=== PATIENT | male | born 1965 | race Caucasian/White ===

== ENCOUNTER 2019-05-23 11:43 | Inpatient (IN) | payer OTHER, SELFPAY ==
[2019-05-23] VITALS (10 sets, daily range): BP systolic 109–178; BP diastolic 62–128; PULSE 100–110; RESP 15–24; TEMP 36.4–38.1; O2SAT 89–98; BMI 38.3
--- NOTE | 2019-05-23 12:18 | XR_ITS ---
WS: [id number] PORTABLE CHEST HISTORY: SOB COMPARISON: None available. Scattered opacifications bilaterally but greatest over the mid and lower central RIGHT lung. More sub tle opacifications in the central LEFT lung. No pleural effusion or pneumothorax. Cardiac size: Moderately enlarged cardiac silhouette. Mediastinum/Aorta: Normal mediastinum. No osseous abnormality seen. XR/XR chest 1V portable [id number] IMPRESSION: 1. Bilateral pneumonia, RIGHT greater than LEFT. 2. Moderate cardiomegaly.
--- NOTE | 2019-05-23 12:20 | ECG_ITS ---
Measurements Intervals [place] Rate: 108 P: NC: 0 QRS: 11 QRSD: 109 T: 90 QT: 344 QTc: 463 Sinus TACHYCARDIA WITH RAPID VENTRICULAR RESPONSE POSSIBLE ANTERIOR MYOCARDIAL INFARCTION , OF INDETERMINATE AGE [30 ms Q WAVE IN V3/V4, OR R < 0.2 mV IN V4] MODERATE T-WAVE ABNORMALITY, CONSIDER LATERAL ISCHEMIA [-0.1+ mV T WAVE IN I/ I/aVL/V5/V6] No previous ECG available for comparison Electronically Signed On 05-24-2019 7:58:56 CDT by Bassam Aguirre M.D. [email or web address]
--- NOTE | 2019-05-23 12:23 | W.ED.SOB ---
HPI - SOB/Dyspnea General: Chief Complaint: Shortness of Breath/Dyspnea Stated Complaint: SOB, DIZZY Time Seen by Provider: 05/23/19 11:52 Source: patient and family ( was on the phone) Mode of arrival: ambulatory Limitations: other (shortness of breath) History of Present Illness: HPI Narrative: Patient is a 53-year-old gentleman with no significant past medical history who presents to the emergency department complaining of chest pain and shortness of breath. The patient also called his who was on face time and gave part of the history. Yesterday while the patient was cutting grass at home he developed substernal chest pain and shortness of breath. He also had some dizziness at that time. Symptoms got a little better with rest and aspirin yesterday but have progressively worsened since then. The patient states that It feels like I have a hole in my lungs and he cannot get air into it . The patient does not smoke but chews tobacco. No history of recent long travel and no family history of PE or DVTs. No cardiac history in the patient or his family. Because he is feeling worse he is presenting to be evaluated. No sick contacts and no travel to any states with the coronavirus infection. MD elicited complaint: shortness of breath and cough Onset (ago): day(s) (1) Timing: constant and progressively worsening Severity: moderate Exacerbating factors: exertion Relieving factors: nothing Associated symptoms: Reports chest congestion, chest pain, cough, dizziness, fever(s), lightheadedness and nausea; Deny abdominal pain, diaphoresis, hemoptysis, polydipsia, polyuria, sense of impending doom, syncope or vomiting Treatment prior to arrival: none Review of Systems General: Reports: 10 or more systems reviewed and unremarkable except in HPI and below Const: Reports: fever; Denies: diaphoresis Eyes: Denies: change in vision or blurry vision ENMT: Denies: throat pain, enlarged tonsils, painful swallowing, hoarseness, mouth pain or swelling of lips/tongue Card: Reports: chest pain and lightheadedness; Denies: syncope Resp: Reports: chest congestion; Denies: coughing up blood GI: Reports: nausea; Denies: abdominal pain or vomiting : Denies: flank pain, painful urination, urinary frequency, urinary urgency or urinary hesitancy Musc: Denies: neck pain, back pain or extremity swelling Skin/Breast: Denies: rash, itching or redness Neuro: Reports: dizziness Endo: Denies: excessive urination, excessive thirst or tired all the time PFSH ED PFSH: Medical History (Updated 05/23/19 @ 22:31 by Alondra Dasilva MD, [facility]) Obesity Family History (Updated 05/23/19 @ 15:26 by Olvin Barker MD) Father Cancer Lung cancer Mother Lung disease COPD, both parents smokers Social History (Updated 05/23/19 @ 15:27 by Olvin Barker MD) Smoking and tobacco status: former smoker Substance/Drug Use: never Lives independently: Yes Household members: spouse and children Marital status: Number of children: 5 Physical Exam Const: COMMON NORMALS: no apparent distress, average body habitus, oriented x3, no limitations, alert and well nourished Neck/C-Spine: COMMON NORMALS: full ROM, supple, no meningeal signs, no JVD and no carotid bruits Chest: COMMONS NORMALS: inspection of chest normal and palpation of chest normal Resp: COMMON NORMALS: normal respiratory effort, no retractions, no use of accessory muscles and clear to auscultation bilaterally AUSCULTATION: clear to auscultation bilaterally Cardio: COMMON NORMALS: no JVD, regular rhythm, S1 normal heart sound, S2 normal heart sound, no gallops, no clicks, no murmurs, no rub and peripheral pulses 2+ throughout RATE: tachycardic RHYTHM: regular rhythm HEART SOUNDS: S1 normal and S2 normal PERIPHERAL PULSES: pulses 2+ throughout GI: COMMON NORMALS: normal to inspection, nondistended, normoactive bowel sounds, soft to palpation, non-tender, no hepatosplenomegaly, no masses and no bruits PALPATION: Yes soft and Yes no hepatosplenomegaly : COMMON NORMALS: Yes no CVA tenderness BLADDER/KIDNEY EXAM: Yes no CVA tenderness Back/Pelvis: COMMON NORMALS: no CVA tenderness Extremity: COMMON NORMALS: normal to inspection, full ROM, normal capillary refill, no calf tenderness and no pedal edema Neuro: COMMON NORMALS: oriented x3 SENSORIUM/ORIENTATION: Yes alert MENINGEAL SIGNS: Yes no meningeal signs Skin: COMMON NORMALS: no rashes or lesions noted, no wounds, skin turgor normal, no jaundice, no petechiae and no mottling GENERAL SKIN EXAM: no rashes or lesions noted and turgor normal Course Vital Signs: Vital signs: Vital Signs Temperature 100.6 F H 05/23/19 19:57 Pulse Rate 101 H 05/23/19 19:57 Respiratory Rate 21 H 05/23/19 19:57 Blood Pressure 109/62 05/23/19 19:57 Pulse Oximetry 97 05/23/19 19:57 MDM - SOB/Dyspnea MDM Narrative: Medical decision making narrative: 63-year-old male who presents to the emergency department with shortness of breath that started suddenly yesterday. Evaluation in the ED is not conclusive but concerns include covid-19, pneumonia, ACS, musculoskeletal chest pain causing difficulty breathing. He does not have any real risk factors for coronavirus infection, however due to the acuity of onset of his symptoms and the bilateral patchy infiltrates seen on his x-ray he is tested for covid-19, started on antibiotics and is admitted for further evaluation and management. Lab Data: Labs: Lab Results 05/23/19 05/23/19 05/23/19 Range/Units 12:00 12:00 12:00 WBC 12.7 H (4.0-10.0) 10^3/ uL RBC 5.27 (4.1-5.3) 10^6/u L Hgb 15.2 (11.7-16.6) g/dL Hct 45.1 (42.0-52.0) % MCV 85.6 (80-94) fL MCH 28.8 (28.0-34.0) pg MCHC 33.7 (30.0-36.0) g/dL RDW 13.3 (12.1-15.1) % Plt Count 199 (130-400) 10^3/c mm MPV 10.7 H (7.4-10.4) fL Neut % (Auto) 81.8 % Lymph % (Auto) 10.2 % Holt % (Auto) 6.8 % Eos % (Auto) 0.6 % Baso % (Auto) 0.4 % Neut # (Auto) 10.4 H (1.8-7.7) 10^3/u L Lymph # (Auto) 1.3 (0.8-4.8) 10^3/u L Holt # (Auto) 0.9 (0.2-0.9) 10^3/u L Eos # (Auto) 0.1 (0.0-0.8) 10^3/u L Baso # (Auto) 0.1 (0.0-0.1) 10^3/u L Nucleated RBC % (a uto) 0 % Nucleated RBCs # 0.0 /100WBC D-Dimer 0.30 (0-0.59) ug/mIFE U Sodium 135 L (136-145) mmol/L Potassium 4.0 (3.5-5.1) mmol/L Chloride 100 (98-107) mmol/L Carbon Dioxide 21 L (22-29) mmol/L Anion Gap 18.0 (5-19) BUN 15 (6-20) mg/dL Creatinine 0.9 (0.7-1.2) mg/dL GFR Calculation 87.6 L (90-130) mL/min Glucose 204 H (65-115) mg/dL Calculated Osmolal ity 282 L (285-295) mOsm/k g Calcium 10.0 (8.5-10.5) mg/dL Total Bilirubin 1.0 (0.15-1.2) mg/dL AST 23 (0-40) U/L ALT 27 (0-41) U/L Alkaline Phosphata se 76 (40-130) IU/L Troponin T Baselin e (0-15) ng/mL NT-Pro-B Natriuret Pep 471 H (0-125) pg/mL Total Protein 7.2 (6.6-8.7) g/dL Albumin 4.1 (3.5-5.2) g/dL Globulin 3.1 (1.3-4.6) g/dL 05/23/19 Range/Units 12:00 WBC (4.0-10.0) 10^3/ uL RBC (4.1-5.3) 10^6/u L Hgb (11.7-16.6) g/dL Hct (42.0-52.0) % MCV (80-94) fL MCH (28.0-34.0) pg MCHC (30.0-36.0) g/dL RDW (12.1-15.1) % Plt Count (130-400) 10^3/c mm MPV (7.4-10.4) fL Neut % (Auto) % Lymph % (Auto) % Holt % (Auto) % Eos % (Auto) % Baso % (Auto) % Neut # (Auto) (1.8-7.7) 10^3/u L Lymph # (Auto) (0.8-4.8) 10^3/u L Holt # (Auto) (0.2-0.9) 10^3/u L Eos # (Auto) (0.0-0.8) 10^3/u L Baso # (Auto) (0.0-0.1) 10^3/u L Nucleated RBC % (a uto) % Nucleated RBCs # /100WBC D-Dimer (0-0.59) ug/mIFE U Sodium (136-145) mmol/L Potassium (3.5-5.1) mmol/L Chloride (98-107) mmol/L Carbon Dioxide (22-29) mmol/L Anion Gap (5-19) BUN (6-20) mg/dL Creatinine (0.7-1.2) mg/dL GFR Calculation (90-130) mL/min Glucose (65-115) mg/dL Calculated Osmolal ity (285-295) mOsm/k g Calcium (8.5-10.5) mg/dL Total Bilirubin (0.15-1.2) mg/dL AST (0-40) U/L ALT (0-41) U/L Alkaline Phosphata se (40-130) IU/L Troponin T Baselin e 32 H (0-15) ng/mL NT-Pro-B Natriuret Pep (0-125) pg/mL Total Protein (6.6-8.7) g/dL Albumin (3.5-5.2) g/dL Globulin (1.3-4.6) g/dL EKG Data^: EKG 1: Attestation: I personally reviewed and interpreted this EKG as follows: EKG Interpretation Date: 05/23/19 EKG interpretation time: 12:00 Prior EKG tracings: not available for review Interpretation: Sinus tachycardia. Heart rate 108. She will reversion in 1 and aVL Discharge Plan Discharge Patient Disposition: Admitted As Inpatient Admit Provider: Makarian,Olvin Clinical Impression: Community acquired pneumonia Qualifiers: Laterality: right Lung location: lower lobe of lung Qualified Code(s): J18.9 - Pneumonia, unspecified organism Dyspnea Qualifiers: Dyspnea type: shortness of breath Qualified Code(s): R06.02 - Shortness of breath Condition: Stable Interventions: ED Discharge Assessment Last Done: 05/23/19 15:16 Discharge Date/Time: 05/23/19 15:17 Coding Level of Care Code ED Web Applications Developer for Chg Fwd Exam Comprehensive
[2019-05-23 12:31] LABS: Basophils # 0.1 10^3/uL (0.0-0.1); Basophils % 0.4 %; Eosinophils # 0.1 10^3/uL (0.0-0.8); Eosinophils % 0.6 %; Hematocrit 45.1 % (42.0-52.0); Hemoglobin 15.2 g/dL (11.7-16.6); Lymphocytes # 1.3 10^3/uL (0.8-4.8); Lymphocytes % 10.2 %; Mean Corpuscular HGB Conc 33.7 g/dL (30.0-36.0); Mean Corpuscular Hemoglobin 28.8 pg (28.0-34.0); Mean Corpuscular Volume 85.6 fL (80-94); Mean Platelet Volume 10.7 fL (7.4-10.4); Monocytes # 0.9 10^3/uL (0.2-0.9); Monocytes % 6.8 %; Neutrophils # 10.4 10^3/uL (1.8-7.7); Neutrophils % 81.8 %; Nucleated Red Blood Cells % 0 %; Platelet Count 199 10^3/cmm (130-400); Red Blood Count 5.27 10^6/uL (4.1-5.3); Red Cell Distribution Width 13.3 % (12.1-15.1); White Blood Count 12.7 10^3/uL (4.0-10.0)
[2019-05-23 12:46] LABS: Troponin(5th) Baseline 32 ng/mL (0-15)
[2019-05-23 13:22] LABS: Alanine Aminotransferase 27 U/L (0-41); Albumin Level 4.1 g/dL (3.5-5.2); Alkaline Phosphatase 76 IU/L (40-130); Aspartate Amino Transferase 23 U/L (0-40); Blood Urea Nitrogen 15 mg/dL (6-20); Carbon Dioxide 21 mmol/L (22-29); Chloride 100 mmol/L (98-107); Globulin 3.1 g/dL (1.3-4.6); Glomerular Filtration Rate 87.6 mL/min (90-130); Glucose 204 mg/dL (65-115); NT Pro B Type Natriuretic Pept 471 pg/mL (0-125); Osmolality Calculated 282 mOsm/kg (285-295); Sodium 135 mmol/L (136-145); Total Protein 7.2 g/dL (6.6-8.7)
--- NOTE | 2019-05-23 13:52 | CTR_ITS ---
PROCEDURE INFORMATION: Exam: CT Angiography Chest With Contrast Exam date and time: 05/23/2019 2:35 PM Age: 53 years old Clinical indication: Shortness of breath; Additional info: SOB, hypoxia TECHNIQUE: Imaging protocol: Computed tomographic angiography of the chest with intravenous contrast. Axial, coronal and sagittal reformatted images were created and reviewed. 3D rendering: MIP and/or 3D reconstructed images were created by the technologist. Total DLP: 624.49 mGy-cm Radiation optimization: All CT scans at this facility use at least one of these dose optimization techniques: automated exposure control; mA and/or kV adjustment per patient size (includes targeted exams where dose is matched to clinical indication); or iterative reconstruction. Contrast material: OMNIPAQUE 350; Contrast volume: 95 ml; Contrast route: IV; COMPARISON: CR XR chest 1V portable [id number] 05/23/2019 12:34 PM FINDINGS: Pulmonary arteries: Contrast opacification satisfactory. No intraluminal filling defect. Aorta: Mild atherosclerotic disease. No aneurysm or dissection. Lungs: Mild central peribronchial thickening, suggestive of airway inflammation. Patchy right greater than left ground-glass infiltrates with associated interlobular septal thickening, most pronounced in the perihilar regions. Focal area of more confluent consolidation in the right lower lobe. Scattered nodular densities, measuring up to 6 mm in the right middle lobe (series 2, image 243). Right middle lobe calcified granuloma. Pleural space: Small right greater than left pleural effusions. Heart: Cardiomegaly and left ventricular hypertrophy. Mediastinum: Small hiatal hernia. Lymph nodes: Calcified mediastinal and hilar lymph nodes, consistent with prior granulomatous disease. Bones/joints: No acute osseous abnormality. Osteopenia. Degenerative changes. Soft tissues: Unremarkable. CT/CT angio chest PE protcl [id number]: 1. No CT evidence of pulmonary embolism. 2. Cardiomegaly and small right greater than left pleural effusions with findings suggestive of edema, as described above. 3. Focal area of more confluent consolidation in the right lower lobe. Superimposed infection/pneumonia cannot be excluded. 4. Scattered nodular densities, measuring up to 6 mm in the right middle. For patients at low risk (minimal or absent history of smoking and of other known risk factors), recommend CT at 3-6 months, then consider CT at 18-24 months. For patients at high risk (history of smoking or of other known risk factors), recommend CT at 3-6 months, then CT at 18-24 months. (Renetta et al., Fleischner Society, 2017) 5. Additional findings, as above. Radiation Dose CTDIVOL = (mGy): DLP = 624.49 (mGy-cm)
--- NOTE | 2019-05-23 14:20 | ECG_ITS ---
Measurements Intervals [place] Rate: 104 P: 13 IA: 155 QRS: 16 QRSD: 116 T: 85 QT: 352 QTc: 463 SINUS TACHYCARDIA MODERATE INTRAVENTRICULAR CONDUCTION DELAY [110+ ms QRS DURATION] ST ELEVATION, PROBABLY EARLY REPOLARIZATION [ST ELEVATION WITH NORMALLY INFL INFLECTED T WAVE] NONSPECIFIC T-WAVE ABNORMALITY ABNORMAL RHYTHM ECG No previous ECG available for comparison Electronically Signed On 05-24-2019 8:02:04 CDT by Bassam Aguirre M.D. [id number]
[2019-05-23] MEDS: cefTRIAXone 2,000 MG in sodium chloride 0.9% (plus) 50 ML 100 MG IV (14:25)
[2019-05-23 14:29] LABS: Troponin 5 2HR 32.68 ng/mL (0-15); Troponin 5 2HR Delta 0.68 ABS# (0-10)
[2019-05-23] MEDS: iohexol 300 mg/mL 100 mL Btl IV (14:49)
--- NOTE | 2019-05-23 15:12 | PC.NURSE ---
Georgie collected and sent to lab.
--- NOTE | 2019-05-23 15:15 | PM.HP ---
Providers/Chief Complaint Admitting Physician: Olvin Barker MD Chief Complaint: HYPOXIA, TACHYCARDIA, PNEUMONIA History of Present Illness Norm Christensen is a 53 year old male presents to emerge department with shortness of breath that started yesterday during physical activity. He was cleaning 55 gallons barrel, washing with water, shaking and emptying when all of a sudden he noticed significant shortness of breath along with shallow and rapid breathing and sensation of racing heart. Reports that shortly after he coughed up clear frothy pink phlegm and had no more episodes since then. Patient took several tablets of aspirin without significant improvement. He was not really wheezing but reports that he tried his mother's albuterol which appeared to help him. Reports that Symbicort did not appear having any effect. Reports that during that time he became diaphoretic but denies nausea or vomiting. His discomfort described as mild substernal with radiation straight to his back, in between shoulder blades. Reports that his chest is tender to palpation. Denies any previous episodes of the same. Denies sick contacts or recent travel. Denies history of diabetes, heart disease or stroke. Reports that at times he may get bilateral lower extremity swelling if he is on his feet long time but this goes away in the morning. He was in his normal state of health prior to this event yesterday. 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 In ER he was noted to be slightly tachycardic and tachypneic and saturating 88% on room air. He denies cough, nasal congestion or any other symptoms of allergy. He does however report previously having at times rhinorrhea when exposed to leaves or grass. He used to smoke but quit approximately 10 to 14 years ago . He chews tobacco since then. He has minimally elevated proBNP and troponin was negative delta. His initial EKG shows some concerning looking V1 ST elevation with biphasic T wave but otherwise V2-V4 ST elevation appears to be secondary to early repolarization. Case was discussed briefly with Dr. Aguirre and EKGs currently do not have any concerning findings. His blood glucose is 204 and he is obese. P.S. CTA showed no evidence of PE. Bilateral small pleural effusion with cardiomegaly was noted with concern for right basilar pneumonia. Review of Systems Narrative: Except as mentioned above Const: Denies: fever or chills Eyes: Denies: change in vision ENMT: Denies: throat pain or change in hearing Card: Reports: chest pain; Denies: edema or lightheadedness Resp: Reports: shortness of breath; Denies: productive cough GI: Denies: abdominal pain, nausea, vomiting, difficulty swallowing, diarrhea, constipation, blood in stool or black tarry stool Musc: Denies: joint pain or joint swelling Skin/Breast: Denies: rash or redness Neuro: Denies: headache or weakness in extremities Psych: Denies: depression Endo: Denies: excessive sweating [place]/Lymph: Denies: easy bleeding or tender lymph nodes All/Imm: Denies: throat swelling Medications/Allergies Home Medications Medication Instructions Recorded Confirmed Last Taken Type No Known Home Medications 05/23/19 05/23/19 Unknown History Allergies Allergy/AdvReac Type Severity Reaction Status Date / Time No Known Allergies Allergy Verified 05/23/19 12:00 PFSH Acute PFSH: Medical History (Updated 05/23/19 @ 16:14 by Olvin Barker MD) Obesity Family History (Updated 05/23/19 @ 15:26 by Olvin Barker MD) Father Cancer Lung cancer Mother Lung disease COPD, both parents smokers Social History (Updated 05/23/19 @ 15:27 by Olvin Barker MD) Smoking and tobacco status: former smoker Substance/Drug Use: never Lives independently: Yes Household members: spouse and children Marital status: Number of children: 5 Vitals/I&O/Wt Last Vital Signs Temp 99.0 F 05/23/19 11:53 Pulse 103 H 05/23/19 14:35 Resp 18 05/23/19 14:35 BP 154/100 05/23/19 14:35 Pulse Ox 98 05/23/19 14:35 05/23/19 05/23/19 05/23/19 06:59 14:59 22:59 Intake Total 50 / 50 Balance 50 / 50 Weight last 48 hrs Weight 124.738 kg Physical Exam Const: COMMON NORMALS: no apparent distress, oriented x3 and alert HENMT: COMMON NORMALS: normocephalic and head/scalp atraumatic HEAD & SCALP: normocephalic and atraumatic Eye: COMMON NORMALS: EOMs intact bilaterally, conjunctivae normal and no scleral icterus CONJUNCTIVA: Yes conjunctivae normal Neck/C-Spine: COMMON NORMALS: no lymphadenopathy and no meningeal signs Lymph: LYMPHATIC: no lymphadenopathy noted Chest: COMMONS NORMALS: palpation of chest normal Resp: COMMON NORMALS: clear to auscultation bilaterally (But overall decreased air movement) EFFORT & INSPECTION: Yes tachypneic AUSCULTATION: clear to auscultation bilaterally Cardio: COMMON NORMALS: regular rate, regular rhythm and no murmurs RATE: regular rate RHYTHM: regular rhythm OTHER: No lower extremity edema GI: COMMON NORMALS: soft to palpation and non-tender PALPATION: Yes soft RECTAL EXAM: Yes deferred : COMMON NORMALS: Yes no CVA tenderness BLADDER/KIDNEY EXAM: Yes no CVA tenderness Back/Pelvis: COMMON NORMALS: no CVA tenderness and thoracic and lumbar spine normal to inspection Extremity: COMMON NORMALS: normal to inspection and normal capillary refill Neuro: COMMON NORMALS: oriented x3 and no focal motor deficits SENSORIUM/ORIENTATION: Yes alert MENINGEAL SIGNS: Yes no meningeal signs Psych: COMMON NORMALS: mental status grossly normal, thought process normal and cooperative THOUGHT PROCESS: normal thought process Skin: COMMON NORMALS: no rashes or lesions noted GENERAL SKIN EXAM: no rashes or lesions noted Data : 05/23/19 12:00 05/23/19 12:00 A&P Assessment and plan (1) Chest pain: This appears to be musculoskeletal in origin. Status: Acute (2) Hyperglycemia: Status: Acute (3) Obesity: Status: Acute (4) Dyspnea: Could be multifactorial with obesity and some underlying COPD with possibility of allergen related bronchospasm playing a role. Status: Acute (5) Community acquired pneumonia: Status: Acute (6) Diastolic heart failure: Status: Acute (7) Hypertension: Status: Acute (8) Sepsis: As exhibited by leukocytosis, tachycardia and tachypnea. Status: Acute Additional A&P Information PLAN: Trend cardiac enzymes and obtain echocardiogram to evaluate wall motion and ejection fraction. Will try 1 dose IV Lasix and monitor. Check magnesium and phosphorus. Will start patient on nitroglycerin ointment 1 inch every 6 hours. We will use hydralazine as needed. Patient was given ceftriaxone and I will continue ceftriaxone and add azithromycin. Patient meets sepsis criteria. Will check lactic acid but at this point will avoid any IV fluids due to concern for underlying heart failure Awaiting COVID19 test although clinically this appears to be low probability. Check PFTs. Does not appear to be in COPD exacerbation clinically but definitely has some underlying degree of obstructive lung disease. Check TSH, lipid profile and hemoglobin A1c in a.m. Monitor on telemetry at cardiac stepdown unit. If remains stable from cardiac standpoint we may consider further evaluation with stress test. Patient will require repeat imaging as recommended per radiologist given findings of CT scan. Initially I thought patient will require less than 2 midnights but it appears that he will likely stay more than 2 midnights therefore will change admission status to inpatient. Attestations Medical Necessity Statement*: Pneumonia and what appears to be diastolic heart failure requires close inpatient monitoring, treatment and evaluation. I expect patient will require more than 2 midnights. Time Spent in Patient Care: Greater than 35 minutes (>than 50% of time spent in counselling and/or direct pt care on unit). Coding Level of Care Code Acute Air Traffic Control Equipment Repairer for Jacques Fwd Diagnoses Chest pain R07.9 Hyperglycemia R73.9 Obesity E66.9 Dyspnea R06.00 Community acquired pneumonia J18.9 Diastolic heart failure I50.30 Hypertension I10 Sepsis A41.9
[2019-05-23 16:43] LABS: Magnesium 2.3 mg/dL (1.7-2.3); Phosphorus 3.3 mg/dL (2.5-4.5)
[2019-05-23] MEDS: azithromycin 500 MG in sodium chloride 0.9% 250 ML 250 MG IV (17:08)
[2019-05-23] MEDS: FUROsemide 10 mg/mL SDV 4mL 40 MG IVP (17:11)
[2019-05-23] MEDS: enoxaparin 40 mg/0.4 mL Syringe SUBCUT (17:13)
[2019-05-23] MEDS: nitroglycerin 1 gm/inch oint Pkt 1 INCH TOPICAL ×2 (17:13→22:04)
[2019-05-23 18:37] LABS: Ferritin 284 ng/mL (30-400)
[2019-05-23 20:00] LABS: Lactic Sepsis W/Reflex 1.8 mmol/L (0.5-2.2)
[2019-05-24] VITALS (11 sets, daily range): BP systolic 101–117; BP diastolic 55–74; PULSE 95–114; RESP 15–30; TEMP 36.6–37.1; O2SAT 93–99
[2019-05-24 00:26] LABS: Add Urine Microscopic? NO
[2019-05-24 00:43] LABS: Bilirubin Urine Neg (NEGATIVE); Blood Urine Neg (Negative); Glucose Urine UA Norm (Normal); Ketones Urine Negative (Negative); Leukocyte Esterase Urine Negative (Negative); Nitrate Urine Negative (Negative); Protein Urine Neg (Negative); Urine Appearance Clear (CLEAR); Urine Color Yellow (Yellow); Urobilinogen Urine Norm (Negative); pH Urine 5 (5-7)
[2019-05-24] MEDS: cefTRIAXone 1,000 MG in sodium chloride 0.9% (plus) 50 ML 100 MG IV ×2 (01:51→15:30)
--- NOTE | 2019-05-24 02:33 | PC.NURSE ---
Patient having increased shortness of breath while laying down and sitting on side of bed. Currently on oxymask of 10L sating 94-97%. Posterior lung sounds are more diminished than at beginning of shift. Coached patient breathing techniques. Notified Dr. Sneed, orders received to start Bipap. Respiratory notified. Will continue to monitor patient.
[2019-05-24] MEDS: nitroglycerin 1 gm/inch oint Pkt 1 INCH TOPICAL ×2 (03:31→23:25)
[2019-05-24 03:42] LABS: Basophils % 0.3 %; Eosinophils # 0.2 10^3/uL (0.0-0.8); Eosinophils % 1.2 %; Hematocrit 42.5 % (42.0-52.0); Hemoglobin 14.4 g/dL (11.7-16.6); Lymphocytes % 14.3 %; Mean Corpuscular HGB Conc 33.9 g/dL (30.0-36.0); Mean Corpuscular Hemoglobin 29.6 pg (28.0-34.0); Mean Corpuscular Volume 87.4 fL (80-94); Mean Platelet Volume 10.2 fL (7.4-10.4); Monocytes # 1.4 10^3/uL (0.2-0.9); Monocytes % 9.9 %; Neutrophils # 10.1 10^3/uL (1.8-7.7); Neutrophils % 73.9 %; Nucleated Red Blood Cells % 0 %; Platelet Count 170 10^3/cmm (130-400); Red Blood Count 4.86 10^6/uL (4.1-5.3); Red Cell Distribution Width 13.5 % (12.1-15.1); White Blood Count 13.7 10^3/uL (4.0-10.0)
[2019-05-24 04:02] LABS: Chol HDL Ratio 4.47 mg/dL (1.0-5.00); Cholesterol 152 mg/dL (0-200); HDL Cholesterol 34 mg/dL (60-100); LDL Cholesterol Calculated 87 mg/dL (50-129); LDL HDL Ratio 2.56 RATIO (0.00-3.22); Triglycerides 155 mg/dL (0-150)
[2019-05-24 04:08] LABS: Estmated Average Glucose 128; Hemoglobin A1C 6.1 % (4.0-6.0)
[2019-05-24 04:15] LABS: Alanine Aminotransferase 19 U/L (0-41); Alkaline Phosphatase 69 IU/L (40-130); Aspartate Amino Transferase 14 U/L (0-40); Blood Urea Nitrogen 16 mg/dL (6-20); Calcium 9.6 mg/dL (8.5-10.5); Carbon Dioxide 24 mmol/L (22-29); Chloride 98 mmol/L (98-107); Globulin 3.2 g/dL (1.3-4.6); Glomerular Filtration Rate 69.5 mL/min (90-130); Glucose 156 mg/dL (65-115); Osmolality Calculated 282 mOsm/kg (285-295); Sodium 136 mmol/L (136-145); Thyroid Stimulating Hormone 4.12 uIU/mL (0.27-4.20); Total Bilirubin 0.9 mg/dL (0.15-1.2); Total Protein 7.2 g/dL (6.6-8.7)
--- NOTE | 2019-05-24 06:00 | USCV_ITS ---
Norm Christensen Age: 53 Gender: M : 1965 Exam Date: 05/24/2019 09:29 Ordering Phys: Olvin Barker MD Technologist: Devin Wells Exam Location: [facility] [place] Indication: CHEST PAIN AND SOB BP: 134 / 70 HR: 96 Rhythm: Sinus Technical Quality: Very technically difficult study MEASUREMENTS (Male / Female) Normal Values 2D ECHO LV Diastolic Diameter PLAX 6.8 cm 4.2 - 5.9 / 3.9 - 5.3 cm LV Systolic Diameter PLAX 3.5 cm IVS Diastolic Thickness 1.1 cm 0.6 - 1.0 / 0.6 - 0.9 cm IVS Systolic Thickness 2.1 cm LVPW Diastolic Thickness 1.3 cm 0.6 - 1.0 / 0.6 - 0.9 cm LVPW Systolic Thickness 1.9 cm LVOT Diameter 2.4 cm LV Ejection Fraction 2D Teich 79.7 % LV Ejection Fraction MOD 2C 60.0 % LV Ejection Fraction 2C AL 58.9 % LA Diameter 6.4 cm LA Width 5.1 cm LA Height 4.9 cm RA Width 4.9 cm RA Height 5.1 cm M-MODE LV Diastolic Diameter MM 6.0 cm 4.2 - 5.9 / 3.9 - 5.3 cm LV Systolic Diameter MM 4.2 cm LV Ejection Fraction MM Teich 58.0 % IVS Diastolic Thickness MM 1.3 cm 0.6 - 1.0 / 0.6 - 0.9 cm IVS Systolic Thickness MM 1.6 cm LVPW Diastolic Thickness MM 1.3 cm 0.6 - 1.0 / 0.6 - 0.9 cm LVPW Systolic Thickness MM 2.1 cm RV Diastolic Diameter MM 1.8 cm Aortic Annulus Diameter 3.4 cm LA Ao Ratio MM 1.9 MV E Point Septal Separation 1.4 cm DOPPLER AV Peak Velocity 129.0 cm/s LVOT Peak Velocity 87.0 cm/s AV Area Cont Eq vti 4.0 cm squared AV Area Cont Eq pk 3.0 cm squared MV Area PHT 5.0 cm squared Mitral E to A Ratio 2.4 MV E' Velocity 178.0 cm/s TR Peak Velocity 83.0 cm/s TR Peak Gradient 2.8 mmHg TV Peak E Velocity 98.0 cm/s Right Atrial Pressure 3.0 mmHg Pulmonary Artery Systolic Pressu 5.8 mmHg FINDINGS Left Ventricle Normal left ventricular systolic function. Left ventricular ejection fraction is visually estimated at 60 %. This study is inadequate for estimation of regional wall motion abnormality. Right Ventricle Right ventricle not well visualized. Right Atrium Right atrium not well visualized. Left Atrium Left atrium not well visualized. Normal left atrial size. Mitral Valve Structurally normal mitral valve. Aortic Valve Aortic valve not well visualized. Tricuspid Valve Tricuspid valve not well visualized. Pulmonic Valve Pulmonic valve not well visualized. Trace pulmonary valve regurgitation. Pericardium No pericardial effusion. Aorta Aorta not well visualized. CONCLUSIONS 1. This is a technically very difficult study. 2. Normal left ventricular systolic function. Left ventricular ejection fraction is visually estimated at 60 %. This study is inadequate for estimation of regional wall motion abnormality. 3. No prior similar studies to compare. Fani Gibson MD (Electronically Signed) Final Date: 24 May 2019 13:21 S
--- NOTE | 2019-05-24 07:41 | PM.PN ---
Subjective Subjective: Interval history: Chart reviewed, has temp of 100.6 F yesterday evening, developed worsening shortness of breath overnight and is currently on BiPAP. Has had a total of 150 mL urine output so far. A.m. labs noted with increasing leukocytosis, normal renal function. Patient seen and examined, on the phone during my visit, updated on current lab results. COVID-19 testing negative so we will discontinue isolation precautions and transferred to medical surgical floor. Currently on nasal cannula. Clinically ill appearing and reports continued dsypnea particularly with exertion, unable to lay in supine position. Medications: Reviewed: Yes Medication Review Details: Active Medications Generic Name Dose Route Start Last Admin Trade Name Freq PRN Reason Stop Dose Admin Acetaminophen 650 mg 05/23/19 16:58 Tylenol PO Q6H PRN Mild/Mod Pain Or Temp >/= 101 Bisacodyl 10 mg 05/23/19 16:58 Dulcolax PO DAILY PRN CONSTIPATION Enoxaparin Sodium 40 mg 05/23/19 18:00 05/23/19 17:13 Lovenox SUBCUT 40 mg Q24H ASHLYN Administration Hydralazine HCl 10 mg 05/23/19 16:11 Apresoline IVP Q4H PRN bp > 160/100 Ceftriaxone Sodium 1,000 mg/ 50 mls @ 100 mls/ hr 05/24/19 02:00 05/24/19 01:51 Sodium Chloride IV 100 mls/hr Q12H ASHLYN Administration Protocol Azithromycin 500 m g/ Sodium 250 mls @ 250 mls /hr 05/23/19 17:00 05/23/19 19:21 Chloride IV Infused Q24H ASHLYN Infusion Protocol Nitroglycerin 1 inch 05/23/19 16:30 05/24/19 03:31 Nitro-Bid TOPICAL 1 inch Q6H ASHLYN Administration No Known Allergies Allergy (Verified 05/23/19 12:00) Vitals/I&O/Wt Last Vital Signs Temp 97.9 F 05/24/19 03:31 Pulse 97 05/24/19 03:31 Resp 20 H 05/24/19 03:31 BP 101/55 05/24/19 03:31 Pulse Ox 97 05/24/19 03:31 05/23/19 05/24/19 05/24/19 22:59 06:59 14:59 Intake Total 300 / 300 Output Total 150 / 150 Balance 300 / 300 -150 / 150 Weight last 48 hrs Weight 124.738 kg Physical Exam Const: COMMON NORMALS: no apparent distress and oriented x3 GENERAL APPEARANCE: cooperative and ill appearing NUTRITIONAL APPEARANCE: obese morbidly obese ORIENTATION/CONSCIOUSNESS: Yes awake HENMT: COMMON NORMALS: normocephalic, head/scalp atraumatic, hearing grossly normal bilaterally and moist oral mucous membranes HEAD & SCALP: normocephalic and atraumatic Eye: COMMON NORMALS: PERRL, EOMs intact bilaterally and conjunctivae normal CONJUNCTIVA: Yes conjunctivae normal PUPIL: Yes PERRL Neck/C-Spine: COMMON NORMALS: full ROM GENERAL: Yes normal visual inspection and Yes trachea midline Chest: COMMONS NORMALS: inspection of chest normal Resp: COMMON NORMALS: normal respiratory effort, no retractions and no use of accessory muscles EFFORT & INSPECTION: Yes able to speak in complete sentences, Yes symmetric chest movement and Yes tachypneic AUSCULTATION: crackles Cardio: COMMON NORMALS: regular rate, regular rhythm, S1 normal heart sound, S2 normal heart sound and no murmurs RATE: regular rate RHYTHM: regular rhythm HEART SOUNDS: S1 normal and S2 normal GI: COMMON NORMALS: normal to inspection, nondistended, normoactive bowel sounds, soft to palpation and non-tender INSPECTION: Yes central obesity PALPATION: Yes soft Extremity: COMMON NORMALS: normal to inspection, full ROM and no clubbing, cyanosis or edema Neuro: COMMON NORMALS: oriented x3, moves all extremities, no focal motor deficits and no sensory deficits noted Psych: COMMON NORMALS: mental status grossly normal, thought process normal, cooperative, affect normal and speech normal SPEECH: Yes normal speech THOUGHT PROCESS: normal thought process Skin: COMMON NORMALS: no rashes or lesions noted, no jaundice, no petechiae and no mottling GENERAL SKIN EXAM: no rashes or lesions noted Data : 05/24/19 03:20 05/24/19 03:20 A&P Assessment and plan (1) Community acquired pneumonia: -concern for sepsis given leukocytosis, tachycardia, tachypnea, mild hypoxia; no IVF given due to concern for fluid overload. Clinically quite ill appearing -increased leukocytosis this AM, continue to trend WBC -lactic acid wnl -CXR pending report; CTA negative for PE, noted consolidation in RLL; nodular densities that will need follow up imaging -continue Ceftriaxone, Azithromycin -continue to monitor respiratory status closely, supplemental oxygen as needed -Tmax-100.6 F in the past 24 hrs, BP and HR improved; continue to monitor vital signs -COVID-19 testing negative, d/c isolation precautions, influenza negative -outpatient PFTs Status: Acute Qualifiers: Laterality: right Lung location: lower lobe of lung Qualified Code(s): J18.9 - Pneumonia, unspecified organism (2) Chest pain: -r/o ACS -negative delta change in serial troponins -telemetry monitoring -no acute ischemic changes on ECGs -noted lipid panel, A1c, TSH -DENISES Status: Acute Qualifiers: Chest pain type: unspecified Qualified Code(s): R07.9 - Chest pain, unspecified (3) Diastolic heart failure: -Echo pending, no baseline -BNP-471 -developed worsening shortness of breath overnight and is currently requiring BiPAP -Received 40 mg IV dose of Lasix x1, further diuresis as needed Status: Acute Qualifiers: Heart failure chronicity: acute on chronic Qualified Code(s): I50.33 - Acute on chronic diastolic (congestive) heart failure (4) Hypertension: -per H & P, no prior known hx of HTN -BP currently controlled, continue to monitor -hydralazine PRN Status: Acute Qualifiers: Hypertension type: unspecified Qualified Code(s): I10 - Essential (primary) hypertension Additional A&P Information -Morbid obesity: BMI-38 kg/m2 -Former smoker, + smokeless tobacco use -DVT ppx with Lovenox -Dispo: home -Code status: FULL code Attestations Medical Necessity Statement*: Patient requires hospitalization for continued IV antibiotic treatment for pneumonia, currently requiring BiPAP. Time Spent in Patient Care: Greater than 35 minutes (>than 50% of time spent in counselling and/or direct pt care on unit). 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
[2019-05-24] MEDS: FUROsemide 10 mg/mL SDV 4mL 40 MG IVP ×2 (08:49→19:03)
[2019-05-24 14:59] LABS: Influenza A by IFA Negative (Negative); Influenza B by IFA Negative (Negative)
[2019-05-24] MEDS: enoxaparin 40 mg/0.4 mL Syringe SUBCUT (17:38)
[2019-05-24] MEDS: azithromycin 500 MG in sodium chloride 0.9% 250 ML 250 MG IV (18:08)
[2019-05-24] MEDS: LORazepam 2 mg/mL INJ 1 mL IVP (23:29)
[2019-05-25] VITALS (11 sets, daily range): BP systolic 106–129; BP diastolic 65–77; PULSE 88–99; RESP 18–32; TEMP 36.5–37; O2SAT 93–98
[2019-05-25] MEDS: cefTRIAXone 1,000 MG in sodium chloride 0.9% (plus) 50 ML 100 MG IV ×2 (01:36→14:35)
[2019-05-25 06:03] LABS: Basophils # 0.1 10^3/uL (0.0-0.1); Basophils % 0.5 %; Eosinophils # 0.3 10^3/uL (0.0-0.8); Eosinophils % 2.7 %; Hematocrit 36.4 % (42.0-52.0); Hemoglobin 12.1 g/dL (11.7-16.6); Lymphocytes # 1.8 10^3/uL (0.8-4.8); Lymphocytes % 17.8 %; Mean Corpuscular HGB Conc 33.2 g/dL (30.0-36.0); Mean Corpuscular Hemoglobin 29.2 pg (28.0-34.0); Mean Corpuscular Volume 87.9 fL (80-94); Mean Platelet Volume 10.3 fL (7.4-10.4); Monocytes % 10.1 %; Neutrophils # 6.8 10^3/uL (1.8-7.7); Neutrophils % 68.7 %; Nucleated Red Blood Cells % 0 %; Platelet Count 152 10^3/cmm (130-400); Red Blood Count 4.14 10^6/uL (4.1-5.3); Red Cell Distribution Width 13.4 % (12.1-15.1); White Blood Count 9.9 10^3/uL (4.0-10.0)
[2019-05-25 06:25] LABS: Alanine Aminotransferase 13 U/L (0-41); Albumin Level 3.6 g/dL (3.5-5.2); Alkaline Phosphatase 55 IU/L (40-130); Anion Gap 15.7 (5-19); Aspartate Amino Transferase 10 U/L (0-40); Blood Urea Nitrogen 18 mg/dL (6-20); Calcium 9.6 mg/dL (8.5-10.5); Carbon Dioxide 26 mmol/L (22-29); Chloride 98 mmol/L (98-107); Globulin 3.2 g/dL (1.3-4.6); Glomerular Filtration Rate 69.5 mL/min (90-130); Glucose 132 mg/dL (65-115); Osmolality Calculated 280 mOsm/kg (285-295); Potassium 3.7 mmol/L (3.5-5.1); Sodium 136 mmol/L (136-145); Total Bilirubin 1.1 mg/dL (0.15-1.2); Total Protein 6.8 g/dL (6.6-8.7)
[2019-05-25] MEDS: nitroglycerin 1 gm/inch oint Pkt 1 INCH TOPICAL ×3 (08:04→20:33)
[2019-05-25] MEDS: FUROsemide 10 mg/mL SDV 4mL 40 MG IVP ×2 (08:30→17:50)
--- NOTE | 2019-05-25 11:13 | PM.PN ---
Subjective Subjective: Interval history: Had 600 mL urine output overnight, AM labs noted, resolved leukocytosis. Down to 2 L NC. Seen several times throughout the day, overall looks much better and reports feeling better as well. Able to take deeper breaths, converse for longer intervals without stopping to catch his breath, was able to take a shower and with BiPAP on was able to take a nap while laying in bed so feels more rested today. Concerned that respiratory status worsened following recent exposure to mold while renovating bathroom at home. Medications: Reviewed: Yes Medication Review Details: Active Medications Generic Name Dose Route Start Last Admin Trade Name Freq PRN Reason Stop Dose Admin Acetaminophen 650 mg 05/23/19 16:58 Tylenol PO Q6H PRN Mild/Mod Pain Or Temp >/= 101 Bisacodyl 10 mg 05/23/19 16:58 Dulcolax PO DAILY PRN CONSTIPATION Enoxaparin Sodium 40 mg 05/23/19 18:00 05/24/19 17:38 Lovenox SUBCUT 40 mg Q24H ASHLYN Administration Furosemide 40 mg 05/24/19 18:45 05/25/19 08:30 Lasix IVP 40 mg Q12H ASHLYN Administration Hydralazine HCl 10 mg 05/23/19 16:11 Apresoline IVP Q4H PRN bp > 160/100 Ceftriaxone Sodium 1,000 mg/ 50 mls @ 100 mls/ hr 05/24/19 02:00 05/25/19 02:10 Sodium Chloride IV Infused Q12H ASHLYN Infusion Protocol Azithromycin 500 m g/ Sodium 250 mls @ 250 mls /hr 05/23/19 17:00 05/24/19 18:08 Chloride IV 250 mls/hr Q24H ASHLYN Administration Protocol Lorazepam 2 mg 05/24/19 19:11 05/24/19 23:29 Ativan IVP 2 mg Q4H PRN Administration ANXIETY Nitroglycerin 1 inch 05/23/19 16:30 05/25/19 08:04 Nitro-Bid TOPICAL 1 inch Q6H ASHLYN Administration No Known Allergies Allergy (Verified 05/23/19 12:00) Vitals/I&O/Wt Last Vital Signs Temp 98.1 F 05/25/19 07:12 Pulse 97 05/25/19 07:30 Resp 24 H 05/25/19 07:12 BP 116/73 05/25/19 07:12 Pulse Ox 97 05/25/19 07:30 05/24/19 05/25/19 05/25/19 22:59 06:59 14:59 Intake Total 340 / 630 150 / 780 730 / 730 Output Total 600 / 600 Balance 340 / 630 150 / 780 130 / 130 Weight last 48 hrs Weight 124.738 kg Weight 124.738 kg Physical Exam Const: COMMON NORMALS: no apparent distress and oriented x3 GENERAL APPEARANCE: cooperative and ill appearing NUTRITIONAL APPEARANCE: obese morbidly obese ORIENTATION/CONSCIOUSNESS: Yes awake HENMT: COMMON NORMALS: normocephalic, head/scalp atraumatic, hearing grossly normal bilaterally and moist oral mucous membranes HEAD & SCALP: normocephalic and atraumatic Eye: COMMON NORMALS: PERRL, EOMs intact bilaterally and conjunctivae normal CONJUNCTIVA: Yes conjunctivae normal PUPIL: Yes PERRL Neck/C-Spine: COMMON NORMALS: full ROM GENERAL: Yes normal visual inspection and Yes trachea midline Chest: COMMONS NORMALS: inspection of chest normal Resp: COMMON NORMALS: normal respiratory effort, no retractions and no use of accessory muscles EFFORT & INSPECTION: Yes able to speak in complete sentences, Yes symmetric chest movement and Yes tachypneic AUSCULTATION: crackles and diminished lung sounds OTHER: -Improved air entry Cardio: COMMON NORMALS: regular rate, regular rhythm, S1 normal heart sound, S2 normal heart sound and no murmurs RATE: regular rate RHYTHM: regular rhythm HEART SOUNDS: S1 normal and S2 normal GI: COMMON NORMALS: normal to inspection, nondistended, normoactive bowel sounds, soft to palpation and non-tender INSPECTION: Yes central obesity PALPATION: Yes soft Extremity: COMMON NORMALS: full ROM Neuro: COMMON NORMALS: oriented x3, moves all extremities, no focal motor deficits and no sensory deficits noted Psych: COMMON NORMALS: mental status grossly normal, thought process normal, cooperative, affect normal and speech normal SPEECH: Yes normal speech THOUGHT PROCESS: normal thought process Skin: COMMON NORMALS: no rashes or lesions noted, no jaundice, no petechiae and no mottling GENERAL SKIN EXAM: no rashes or lesions noted Data : 05/25/19 05:53 05/25/19 05:53 A&P Assessment and plan (1) Community acquired pneumonia: -concern for sepsis given leukocytosis, tachycardia, tachypnea, mild hypoxia; no IVF given due to concern for fluid overload. Clinically quite ill appearing -resolved leukocytosis this AM -lactic acid wnl -CXR indicative of bilateral R > L pneumonia; CTA negative for PE, noted consolidation in RLL; nodular densities that will need follow up imaging -continue Ceftriaxone, Azithromycin -continue to monitor respiratory status closely, supplemental oxygen as needed -afebrile x 24 hrs, BP and HR improved; continue to monitor vital signs -COVID-19 testing negative, d/c isolation precautions, influenza negative -outpatient PFTs Status: Acute Qualifiers: Laterality: right Lung location: lower lobe of lung Qualified Code(s): J18.9 - Pneumonia, unspecified organism (2) Chest pain: -r/o ACS -negative delta change in serial troponins -telemetry monitoring -no acute ischemic changes on ECGs -noted lipid panel, A1c, TSH -DENISSE Status: Acute Qualifiers: Chest pain type: unspecified Qualified Code(s): R07.9 - Chest pain, unspecified (3) Diastolic heart failure: -Echo limited but EF=60%, no baseline -BNP-471 -BiPAP vs. supplemental oxygen as needed -on IV diuresis with Lasix Status: Acute Qualifiers: Heart failure chronicity: acute on chronic Qualified Code(s): I50.33 - Acute on chronic diastolic (congestive) heart failure (4) Hypertension: -per H & P, no prior known hx of HTN -BP controlled, continue to monitor -hydralazine PRN Status: Acute Qualifiers: Hypertension type: unspecified Qualified Code(s): I10 - Essential (primary) hypertension Additional A&P Information -Morbid obesity: BMI-38 kg/m2 -Former smoker, + smokeless tobacco use -DVT ppx with Lovenox -Dispo: home -Code status: FULL code Attestations Medical Necessity Statement*: Patient requires hospitalization for continued IV antibiotic treatment for bilateral pneumonia. Time Spent in Patient Care: 16 - 35 minutes (>than 50% of time spent in counselling and/or direct pt care on unit). 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
[2019-05-25] MEDS: enoxaparin 40 mg/0.4 mL Syringe SUBCUT (17:30)
[2019-05-25] MEDS: azithromycin 500 MG in sodium chloride 0.9% 250 ML 250 MG IV (17:32)
[2019-05-26] VITALS (8 sets, daily range): BP systolic 98–142; BP diastolic 63–77; PULSE 93–104; RESP 18–33; TEMP 36.7–37.1; O2SAT 87–98
[2019-05-26] MEDS: cefTRIAXone 1,000 MG in sodium chloride 0.9% (plus) 50 ML 100 MG IV (02:06)
[2019-05-26] MEDS: nitroglycerin 1 gm/inch oint Pkt 1 INCH TOPICAL ×2 (02:06→09:01)
[2019-05-26] MEDS: FUROsemide 10 mg/mL SDV 4mL 40 MG IVP (06:39)
--- NOTE | 2019-05-26 13:02 | P.DS_ITS ---
Discharge Providers Date of Admission: 05/23/19 13:56 Date of Discharge: May 26, 2019 Attending Provider at Admission: Olvin Barker MD Attending Provider at Discharge: Coretta Aguilar MD Diagnoses at Discharge Discharge Diagnosis (1) Community acquired pneumonia: Status: Acute Problem details: -concern for sepsis given leukocytosis, tachycardia, tachypnea, mild hypoxia; no IVF given due to concern for fluid overload. Clinically quite ill appearing -resolved leukocytosis this AM -lactic acid wnl -CXR indicative of bilateral R > L pneumonia; CTA negative for PE, noted consolidation in RLL; nodular densities that will need follow up imaging -continue Ceftriaxone, Azithromycin -continue to monitor respiratory status closely, supplemental oxygen as needed -afebrile x > 24 hrs, BP and HR improved; continue to monitor vital signs -COVID-19 testing negative, d/c isolation precautions, influenza negative Qualifiers: Laterality: right Lung location: lower lobe of lung Qualified Code(s): J18.9 - Pneumonia, unspecified organism (2) Chest pain: Status: Resolved Problem details: -r/o ACS -negative delta change in serial troponins -telemetry monitoring -no acute ischemic changes on ECGs -noted lipid panel, A1c, TSH -DENISSE Qualifiers: Chest pain type: unspecified Qualified Code(s): R07.9 - Chest pain, unspecified (3) Diastolic heart failure: Status: Acute Problem details: -Echo limited but EF=60%, no baseline -BNP-471 -BiPAP vs. supplemental oxygen as needed -on IV diuresis with Lasix Qualifiers: Heart failure chronicity: acute on chronic Qualified Code(s): I50.33 - Acute on chronic diastolic (congestive) heart failure (4) Hypertension: Status: Resolved Problem details: -per H & P, no prior known hx of HTN -BP controlled, continue to monitor -hydralazine PRN Qualifiers: Hypertension type: unspecified Qualified Code(s): I10 - Essential (primary) hypertension Other Information Additional DC diagnoses/information: -Morbid obesity: BMI-38 kg/m2 -Former smoker, + smokeless tobacco use Reason for Visit Reason for Visit: Reason For Visit: HYPOXIA, TACHYCARDIA, PNEUMONIA Hospital Course Hospital Course: Due to initial presentation patient was screened for COVID-19 hence initial admission to the cardiac stepdown unit. Chest x-ray was consistent with bilateral pneumonia, worse on the right and he has been on treatment with dual antibiotics. He was quite ill-appearing on initial presentation with concern for sepsis as evidenced by leukocytosis, tachycardia, tachypnea and hypoxia. There was some suspicion for underlying CHF so had an echo done for this with ejection fraction noted to be 60%. In the interim he was diuresed with Lasix and intermittently required BiPAP. He has otherwise been on supplemental oxygen support, initially on 5 L now weaned down to 2 L nasal cannula. COVID-19 testing as well as influenza were negative; isolation precautions were discontinued once test results available and he was transferred to medical surgical floor for continued care. Blood cultures have also been negative. With time and the aforementioned treatment, he has improved significantly to the point where he is now comfortable and feeling well enough to go home. He had home oxygen evaluation done prior to discharge due to need for O2 during hospital stay. He will be continued on oral antibiotics for an additional 7 days to complete the treatment course. He would benefit from pulmonary function testing as there is suspicion for some degree of underlying pulmonary pathology. He will not be continued on diuretics as Echo was relatively normal and no oral antihypertensives as his BP has been well controlled without need for continued medication. Discharge Summary: -Patient to follow up with primary care physician within 1 week. Physical Exam Const: COMMON NORMALS: no apparent distress and oriented x3 GENERAL APPEARANCE: cooperative and ill appearing NUTRITIONAL APPEARANCE: obese morbidly obese ORIENTATION/CONSCIOUSNESS: Yes awake HENMT: COMMON NORMALS: normocephalic, head/scalp atraumatic, hearing grossly normal bilaterally and moist oral mucous membranes HEAD & SCALP: normocephalic and atraumatic Eye: COMMON NORMALS: PERRL, EOMs intact bilaterally and conjunctivae normal CONJUNCTIVA: Yes conjunctivae normal PUPIL: Yes PERRL Neck/C-Spine: COMMON NORMALS: full ROM GENERAL: Yes normal visual inspection and Yes trachea midline Chest: COMMONS NORMALS: inspection of chest normal Resp: COMMON NORMALS: normal respiratory effort, no retractions and no use of accessory muscles EFFORT & INSPECTION: Yes able to speak in complete sentences, Yes symmetric chest movement and Yes tachypneic AUSCULTATION: crackles and diminished lung sounds OTHER: -Improved air entry, on 2 L NC Cardio: COMMON NORMALS: regular rate, regular rhythm, S1 normal heart sound, S2 normal heart sound and no murmurs RATE: regular rate RHYTHM: regular rhythm HEART SOUNDS: S1 normal and S2 normal GI: COMMON NORMALS: normal to inspection, nondistended, normoactive bowel sounds, soft to palpation and non-tender INSPECTION: Yes central obesity PALPATION: Yes soft Extremity: COMMON NORMALS: full ROM Neuro: COMMON NORMALS: oriented x3, moves all extremities, no focal motor deficits and no sensory deficits noted Psych: COMMON NORMALS: mental status grossly normal, thought process normal, cooperative, affect normal and speech normal SPEECH: Yes normal speech THO UGHT PROCESS: normal thought process Skin: COMMON NORMALS: no rashes or lesions noted, no jaundice, no petechiae and no mottling GENERAL SKIN EXAM: no rashes or lesions noted Discharge Data Data Completed and Pending: Completed Studies During Hospitalization Category Date Time Status CT angio chest PE protcl [id number] Stat Cat Scan 05/23/19 13:52 Completed XR chest 1V rachel ble [id number] Urgent Exams 05/23/19 12:18 Completed CV echo complete* [id number] Routine Ultrasound 05/24/19 06:00 Completed Vitals: Last Vital Signs Temp 98.0 F 05/26/19 11:31 Pulse 93 05/26/19 11:31 Resp 18 05/26/19 11:31 BP 119/69 05/26/19 11:31 Pulse Ox 92 05/26/19 11:31 Discharge Plan Discharge Patient Disposition: Home Health Service Condition: Stable Prescriptions: New albuterol sulfate 90 mcg/actuation HFA aerosol inhaler 2 inh INHALATION Q4H PRN (Reason: shortness of breath or wheezing) Qty: 8.5 RF: 0 Augmentin 875-125 mg tablet 1 tab PO BID 7 Days Qty: 14 RF: 0 No Action No Known Home Medications RF: 0 Discharge Orders: Discharge Order (Routine); Ordered 05/26/19 Ordered By: Coretta Aguilar Other Ambulatory Orders: Pulmonary Function Screen with Bronchodilator (Routine) Timeframe: 1 Month Facility: [facility] - Location: Respiratory Therapy Ordered By: Coretta Aguilar Discharge Diet: Regular Discharge Activity: Increase activity as tolerated Discharge Attestations Time Spent in Discharge Care*: greater than 30 min Specific Discharge Activities: Specific discharge activities: educating patient, educating and/or supporting family/caregiver, discussing with medical case manager/social workers/dc planners, documenting/other paperwork and evaluating patient/reviewing data Status at Discharge: Cognitive status at discharge: cognitively intact , Behavioral status at discharge: cooperative , Functional status at discharge: independent ambulation Overall status at discharge: patient is back to baseline Quality Metrics Clinical Quality Measures During this hospital stay, did patient experience: None Coding Level of Care 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
--- NOTE | 2019-05-26 13:40 | PC.RESP ---
Patient given information on Pulmonary Rehab.
--- NOTE | 2019-05-26 14:46 | PC.RESP ---
Patient given information on Pulmonary Rehab.
--- NOTE | 2019-05-27 12:01 | PC.NURSE ---
Patient called the floor today and explained that he had been discharged by Dr. Aguilar yesterday on 05/26/19. Patient is requesting Dr. Aguilar to add an order to his disharge orders to have a BiPap set up from his DME company of choice, [employer]. Dr. Aguilar was consulted and patient was told an order was not going to be able to be obtained from Dr. Aguilar that he would need to follow up with Nelly Garzon D.O. on 06/03/19 as scheduled and instructed in his discharge instructions. Patient was also re-educated that he had a sleep study that is going to be scheduled and the scheduling department is to call him to schedule that test. Patient was not satisfied and stated that he couldn't wait a week to be seen to get an order for a machine. Patient was encouraged to call Nelly Garzon's office to see if he could be seen sooner. Patient voiced understanding and agreed to try calling her office. Viviana Chadwick RN
== END 2019-05-26 16:00 | disposition home health service (06) | DRG 871 ==
LOC: ER 14:23 → CSU 15:47 → MEDSURG 05-24 18:21
PROVIDERS: Admitting Provider Internal Medicine; Emergency Provider Family Medicine; Visit Provider Family Medicine
DX: A41.9 Sepsis, unspecified organism (principal); J18.9 Pneumonia, unspecified organism; I50.33 Acute on chronic diastolic (congestive) heart failure; Z68.41 Body mass index [BMI] 40.0-44.9, adult; F17.220 Nicotine dependence, chewing tobacco, uncomplicated; E66.01 Morbid (severe) obesity due to excess calories; R07.89 Other chest pain; R73.9 Hyperglycemia, unspecified; J44.9 Chronic obstructive pulmonary disease, unspecified; G47.33 Obstructive sleep apnea (adult) (pediatric); I11.0 Hypertensive heart disease with heart failure
CPT/HCPCS: 12345; 36415; 71045; 71275; 80053; 80061; 81003; 82728; 83036; 83605; 83735; 83880; 84100; 84443; 84484; 85025; 85378; 87635; 87804; 93005; 93306; 94660; 96372; 96375; 99283; J0456; J0696; J1650; J1940; J2060; J7050; Q9967

== ENCOUNTER 2019-06-03 16:07 | Outpatient (CLI) | payer OTHER, SELFPAY ==
--- NOTE | 2019-06-03 16:27 | XR_ITS ---
WS: [id number] PROCEDURE: XR chest 2V* [id number] CLINICAL INFORMATION: SOB COMPARISON: May 23, 2019 and CTA May 23, 2019 FINDINGS: Heart: Cardiomegaly. Lungs: Diffuse bilateral groundglass infiltrates seen on the recent CT appear unchanged. This is more prominent in the right lower lobe. Volume loss right lower lobe with segmental elevation right hemid iaphragm. Bones: Normal visualized bony structures. XR/XR chest 2V* [id number] IMPRESSION: 1. Cardiomegaly with mild pulmonary vascular congestion similar to previous. 2. Diffuse bilateral groundglass infiltrates seen on the prior CT appear uncha nged more prominent in the right lower lobe. 3. No focal consolidation
== END 2019-06-03 16:08 | disposition home or self-care (01) ==
LOC: RAD 16:08
PROVIDERS: PCP Family Medicine; Visit Provider Internal Medicine Critical Care Medicine
DX: R06.02 Shortness of breath (principal); I51.7 Cardiomegaly; R09.89 Other specified symptoms and signs involving the circulatory and respiratory systems; R91.8 Other nonspecific abnormal finding of lung field
CPT/HCPCS: 71046

== ENCOUNTER → 2019-06-08 10:31 | Outpatient (BNVA) | payer OTHER, SELFPAY | PROVIDERS: PCP Family Medicine; Visit Provider Family Medicine | DX: I50.30 Unspecified diastolic (congestive) heart failure (principal); R60.0 Localized edema | CPT/HCPCS: 80048 ==

== ENCOUNTER → 2019-06-17 10:41 | Outpatient (BNVA) | payer OTHER, SELFPAY | PROVIDERS: PCP Family Medicine; Visit Provider Family Medicine | DX: E87.6 Hypokalemia (principal) | CPT/HCPCS: 80048 ==

== ENCOUNTER → 2019-07-02 14:14 | Outpatient (BNVA) | payer OTHER, SELFPAY | PROVIDERS: PCP Family Medicine; Visit Provider Family Medicine | DX: R60.0 Localized edema (principal); I50.30 Unspecified diastolic (congestive) heart failure | CPT/HCPCS: 80048 ==

== ENCOUNTER 2019-07-21 09:33 | Outpatient (CLI) | payer OTHER, SELFPAY ==
[2019-07-21 09:58] VITALS: BMI 36.2
--- NOTE | 2019-07-21 10:02 | NMCV_ITS ---
NM juan josé perf SPECT r/s* [id number] Norm Christensen Age: 53 Gender: M : 1965 Exam Date: 07/21/2019 10:02 Ordering Phys: Bassam Aguirre MD ([email or web address]) Technologist: KATHIE Navas Exam Location: [facility] Indications: Chest pain STRESS TEST Please see separate stress test report in [facility] for full findings IMAGE PROTOCOL Rest/Stress 1 Lexiscan Day Radiopharmaceutical Dose (mCi) Administration Site Administered by Rest: Tc-99m 10.9 IV KATHIE Navas Sestamibi Stress:Tc-99m 32.6 IV KATHIE Navas Sestamibi Rest: 21-Jul-2019 60 Discovery 630 Stress: 21-Jul-2019 45 Discovery 630 0.4mg Lexiscan. Images obtained in supine and prone position. SPECT RESULTS Technical Quality: Good Raw Data Analysis: Soft tissue attenuation Image Corrections: No attenuation or motion correction applied Summed Stress Score: 2 Summed Rest Score: 6 Summed Difference Score: 0 PERFUSION FINDINGS Medium-sized area of patchy decreased tracer uptake noted in basal to distal anterior wall on the rest images which improved over stress images suggestive of artifact. Large area of patchy decreased tracer uptake noted in basal to distal inferior inferoseptal wall on the rest images which improved significantly over stress images suggestive of artifact. FUNCTIONAL RESULTS (calculated via Gated SPECT) Stress Image LV EF (%): 52 Stress EDV (mL):263 TID: 1.23 Stress ESV (mL):125 Rest Image LV EF (%): 52 FUNCTIONAL FINDINGS: Basal to distal inferior and inferoapical wall hypokinesis IMPRESSIONS This study is negative for ischemia however TID ratio is elevaed 1.2, which could be secondary to left-ventricular hypertrophy/subendocardial ischemia however cannot rule out multivessel coronary artery disease therefore advised clinical correlation. Herlinda Rabago MD (Electronically Signed) Final Date: 21 July 2019 17:37 S
--- NOTE | 2019-07-21 10:02 | ECG_ITS ---
NAME OF STUDY: LEXISCAN SESTAMIBI STRESS TEST INDICATION: Chest Pain; HTN, CHF RESULTS TO SARA BEYER DO LEXISCAN STRESS TEST ORDERING PHYSICIAN: Carla CLINICAL INFORMATION: Chest pain INTERPRETATION: 1. The patient was brought to the laboratory where Lexiscan was infused over 20 seconds. The resting blood pressure was 139/94. Maximum blood pressure was 139/94. The resting heart rate was 78 beats per minute. The maximum heart rate is 91 beats per minute. 2. The baseline electrocardiogram reveals sinus rhythm with an incomplete left bundle branch block 3. With Lexiscan infusion, there were no ST segment changes to suggest ischemia. 4. The patient experienced no symptoms or arrhythmias during the examination. CONCLUSION: 1. Unremarkable Lexiscan infusion. 2. Nuclear imaging to follow. Electronically Signed On 07-21-2019 15:54:24 CDT by Bassam Aguirre M.D. [id number]
--- NOTE | 2019-07-21 11:31 | SUR.PREOP ---
Patient reports no pain or discomfort prior to the start of the procedure.
[2019-07-21] MEDS: regadenoson 0.4 Mg/5 ml Syringe IVP (11:33)
[2019-07-21 11:57] VITALS: BP 132/84; PULSE 83
== END 2019-07-21 09:34 | disposition home or self-care (01) ==
LOC: CDL 09:38
PROVIDERS: PCP Family Medicine; Visit Provider Internal Medicine Cardiovascular Disease
DX: R07.89 Other chest pain (principal); I11.0 Hypertensive heart disease with heart failure; I50.30 Unspecified diastolic (congestive) heart failure
CPT/HCPCS: 78452; 80048; 82310; 83970; 93017; A9500; J2785

== ENCOUNTER 2019-07-21 20:00 | Outpatient (CLI) | payer OTHER, SELFPAY | END 2019-07-21 20:01 | disposition home or self-care (01) | LOC: SLEEP 07-22 10:10 | PROVIDERS: PCP Family Medicine; Visit Provider Internal Medicine Critical Care Medicine | DX: G47.10 Hypersomnia, unspecified (principal); R06.83 Snoring; G47.31 Primary central sleep apnea; G47.33 Obstructive sleep apnea (adult) (pediatric) | CPT/HCPCS: 95810 ==

== ENCOUNTER 2019-09-02 20:00 | Outpatient (CLI) | payer OTHER, SELFPAY | END 2019-09-02 20:01 | disposition home or self-care (01) | LOC: SLEEP 09-03 11:35 | PROVIDERS: PCP Family Medicine; Visit Provider Internal Medicine Critical Care Medicine | DX: G47.30 Sleep apnea, unspecified (principal) | CPT/HCPCS: 95811 ==

== ENCOUNTER → 2019-10-01 09:05 | Outpatient (BNVA) | payer OTHER, SELFPAY | PROVIDERS: PCP Family Medicine; Visit Provider Family Medicine | DX: R73.03 Prediabetes (principal); Z68.37 Body mass index [BMI] 37.0-37.9, adult; F17.211 Nicotine dependence, cigarettes, in remission; Z71.89 Other specified counseling | CPT/HCPCS: 80053; 80061; 83036 ==

== ENCOUNTER 2020-04-13 09:51 | Outpatient (CLI) | payer OTHER, SELFPAY ==
[2020-04-13 10:53] LABS: Alanine Aminotransferase 26 U/L (0-41); Albumin Level 4.3 g/dL (3.5-5.2); Alkaline Phosphatase 43 IU/L (40-130); Anion Gap 10.5 (5-19); Aspartate Amino Transferase 19 U/L (0-40); Blood Urea Nitrogen 19 mg/dL (6-20); Carbon Dioxide 32 mmol/L (22-29); Chloride 98 mmol/L (98-107); Glomerular Filtration Rate 87.3 mL/min (90-130); Glucose 161 mg/dL (65-115); Osmolality Calculated 290 mOsm/kg (285-295); Potassium 3.5 mmol/L (3.5-5.1); Sodium 137 mmol/L (136-145); Total Bilirubin 0.5 mg/dL (0.15-1.2); Total Protein 7.3 g/dL (6.6-8.7); Uric Acid 10.1 mg/dL (3.4-7.0)
== END 2020-04-13 09:52 | disposition home or self-care (01) ==
PROVIDERS: PCP Family Medicine; Visit Provider Internal Medicine Critical Care Medicine
DX: N20.0 Calculus of kidney (principal)
CPT/HCPCS: 36415; 80053; 84550

== ENCOUNTER 2020-05-11 12:51 | Outpatient (CLI) | payer OTHER, SELFPAY ==
--- NOTE | 2020-05-11 12:45 | USCV_ITS ---
Harsha Christensen Age: 54 Gender: M : 1965 Exam Date: 05/11/2020 13:16 Ordering Phys: Alejo Welsh M.D ([email or web address]) Technologist: AnaC ristina Mora [place] [facility] [place]: MURMUR BP: / HR: 78 Rhythm: Sinus Technical Quality: Adequate MEASUREMENTS (Male / Female) Normal Values 2D ECHO LV Diastolic Diameter PLAX 7.1 cm 4.2 - 5.9 / 3.9 - 5.3 cm LV Systolic Diameter PLAX 4.4 cm IVS Diastolic Thickness 0.9 cm 0.6 - 1.0 / 0.6 - 0.9 cm IVS Systolic Thickness 1.5 cm LVPW Diastolic Thickness 0.9 cm 0.6 - 1.0 / 0.6 - 0.9 cm LVPW Systolic Thickness 0.9 cm LVOT Diameter 2.0 cm LV Ejection Fraction 2D Teich 66.1 % LV Ejection Fraction MOD 2C 52.9 % LV Ejection Fraction 2C AL 53.7 % LA Diameter 4.4 cm Aorta at Sinotubular Diameter 3.0 cm M-MODE LV Diastolic Diameter MM 7.8 cm 4.2 - 5.9 / 3.9 - 5.3 cm LV Systolic Diameter MM 5.1 cm LV Ejection Fraction MM Teich 61.4 % IVS Diastolic Thickness MM 1.0 cm 0.6 - 1.0 / 0.6 - 0.9 cm IVS Systolic Thickness MM 1.2 cm LVPW Diastolic Thickness MM 1.2 cm 0.6 - 1.0 / 0.6 - 0.9 cm LVPW Systolic Thickness MM 1.5 cm Aortic Annulus Diameter 3.7 cm LA Ao Ratio MM 1.3 MV E Point Septal Separation 0.9 cm DOPPLER AV Peak Velocity 101.0 cm/s LVOT Peak Velocity 77.0 cm/s AV Area Cont Eq vti 2.2 cm squared AV Area Cont Eq pk 2.4 cm squared MV Area PHT 5.0 cm squared Mitral E to A Ratio 4.0 MV E' Velocity 87.0 cm/s Mitral E to MV E' Ratio 21.6 Mitral E to LV E' Lateral Ratio 27.6 Mitral E to LV E' Septal Ratio 17.7 TR Peak Velocity 180.7 cm/s TR Peak Gradient 13.1 mmHg TR Mean Velocity 132.4 cm/s TR Mean Gradient 8.0 mmHg TR Velocity Time Integral 35.3 cm TV Peak E Velocity 54.0 cm/s Right Atrial Pressure 3.0 mmHg Pulmonary Artery Systolic Pressu 16.1 mmHg PV Peak Velocity 71.0 cm/s RV Acceleration Time 0.1 s RV Ejection Time 0.3 s RV AcT/ET 0.4 FINDINGS Left Ventricle Normal left ventricular size. LV systolic function is normal with EF of 50-55%. No wall motion abnormalities. Grade 3 diastolic dysfunction. Concentric LVH is noted Right Ventricle The right ventricle is normal in size and function. Right Atrium The right atrium is not well visualized Left Atrium The left atrium is enlarged Mitral Valve Mitral valve leaflets are thickened without significant stenosis or prolapse. There is moderate mitral regurgitation. Aortic Valve Aortic valve is thickened without significant sclerosis or stenosis. There is no aortic regurgitation. Tricuspid Valve Not well visualized. No significant stenosis or regurgitation. Insufficient TR jet to calculate RVSP Pulmonic Valve Not well visualized Pericardium Normal pericardium without effusion. Aorta Normal ascending aorta dimension. CONCLUSIONS LV systolic function is normal with EF of 50-55% Grade 3 diastolic dysfunction Concentric LVH is seen Left atrial enlargement Mitral valve leaflets are thickened. Moderate mitral regurgitation is noted Comparison with prior study from 05/23/2020 is not possible as valves were not visualized at that time Alejo Welsh MD (Electronically Signed) Final Date: 21 May 2020 22:09 S
== END 2020-05-11 12:52 | disposition home or self-care (01) ==
PROVIDERS: PCP Family Medicine; Visit Provider Internal Medicine
DX: R01.1 Cardiac murmur, unspecified (principal); I05.9 Rheumatic mitral valve disease, unspecified
CPT/HCPCS: 93306

== ENCOUNTER → 2020-10-25 15:15 | Outpatient (BNVA) | payer OTHER, SELFPAY | PROVIDERS: PCP Family Medicine; Visit Provider Internal Medicine Critical Care Medicine | DX: I50.30 Unspecified diastolic (congestive) heart failure (principal); G47.39 Other sleep apnea; N20.0 Calculus of kidney | CPT/HCPCS: 80048; 83735 ==

== ENCOUNTER → 2020-10-27 09:00 | Outpatient (BNVA) | payer OTHER, SELFPAY | PROVIDERS: PCP Family Medicine; Visit Provider Family Medicine | DX: R73.9 Hyperglycemia, unspecified (principal); R73.03 Prediabetes | CPT/HCPCS: 80048; 81000; 83036 ==

== ENCOUNTER → 2020-11-23 08:40 | Outpatient (BNVA) | payer OTHER, SELFPAY | PROVIDERS: PCP Family Medicine; Visit Provider Family Medicine | DX: E11.9 Type 2 diabetes mellitus without complications (principal); I10 Essential (primary) hypertension; F17.229 Nicotine dependence, chewing tobacco, with unspecified nicotine-induced disorders; Z79.4 Long term (current) use of insulin | CPT/HCPCS: 80053; 80061; 82043 ==

== ENCOUNTER → 2020-11-24 14:27 | Outpatient (BNVA) | payer OTHER, SELFPAY | PROVIDERS: PCP Family Medicine; Visit Provider Family Medicine | DX: R74.8 Abnormal levels of other serum enzymes (principal) | CPT/HCPCS: 80074 ==

== ENCOUNTER → 2021-01-22 09:38 | Outpatient (BNVA) | payer OTHER, SELFPAY | PROVIDERS: PCP Family Medicine; Visit Provider Family Medicine | DX: E11.9 Type 2 diabetes mellitus without complications (principal); Z79.4 Long term (current) use of insulin | CPT/HCPCS: 80053; 83036; 85025 ==

== ENCOUNTER → 2021-04-23 09:11 | Outpatient (BNVA) | payer OTHER, SELFPAY | PROVIDERS: PCP Family Medicine; Visit Provider Family Medicine | DX: E11.9 Type 2 diabetes mellitus without complications (principal); Z79.4 Long term (current) use of insulin | CPT/HCPCS: 80053; 83036 ==

== ENCOUNTER 2021-07-23 08:56 | Outpatient (CLI) | payer OTHER, SELFPAY ==
--- NOTE | 2021-07-23 09:05 | XRR_ITS ---
PROCEDURE INFORMATION: Exam: XR Right Hand Exam date and time: 07/23/2021 9:09 AM Age: 55 years old Clinical indication: Injury or trauma; Fingers; Right; Puncture; Injury details: Pain snd swelling RT hand, index finger, proximal pip jt, finned by a fish, fish splinter; Additional info: Right index finger swelling TECHNIQUE: Imaging protocol: XR Right hand. Views: 3 or more views. COMPARISON: No relevant prior studies available. FINDINGS: Bones/joints: No acute fracture or malalignment. Mild STT and 1st CMC joint degenerative changes. Soft tissues: No radiopaque foreign bodies identified. XR/XR hand RT min 3V* [id number] IMPRESSION: No acute fracture or malalignment. No radiopaque foreign bodies identified.
== END 2021-07-23 08:57 | disposition home or self-care (01) ==
PROVIDERS: PCP Family Medicine; Visit Provider Family Medicine
DX: M79.89 Other specified soft tissue disorders (principal)
CPT/HCPCS: 73130; 90715

== ENCOUNTER → 2021-09-10 15:45 | Outpatient (BNVA) | payer OTHER, SELFPAY | PROVIDERS: PCP Family Medicine; Visit Provider Family Medicine | DX: N20.0 Calculus of kidney (principal) | CPT/HCPCS: 81000 ==

== ENCOUNTER → 2021-10-22 08:54 | Outpatient (BNVA) | payer OTHER, SELFPAY | PROVIDERS: PCP Family Medicine; Visit Provider Family Medicine | DX: E11.9 Type 2 diabetes mellitus without complications (principal); Z79.4 Long term (current) use of insulin; I10 Essential (primary) hypertension; G47.39 Other sleep apnea; F17.229 Nicotine dependence, chewing tobacco, with unspecified nicotine-induced disorders | CPT/HCPCS: 80053; 80061; 82043; 83036 ==

== ENCOUNTER 2022-04-08 09:59 | Emergency (ER) | payer OTHER, SELFPAY ==
[2022-04-08 10:05] VITALS: BP 129/77; PULSE 80; RESP 14; TEMP 36.2; O2SAT 94; BMI 37.3
--- NOTE | 2022-04-08 10:22 | CT_ITS ---
WS: [id number] CT HEAD NONCONTRAST HISTORY: dizziness TECHNIQUE: Contiguous axial imaging performed through the brain in 2.5 mm imaging. Bone and soft tiss ue windows. Sagittal and coronal reformats reviewed. All CT scans at [facility] use at least one of these dose optimization techniques: automated exposure control; mA and/or kV adjustment per pa tient size (includes targeted exams where dose is matched to clinical indication); or iterative recon struction. DLP: 1181.78 mGy.cm COMPARISON: None available. No acute intracranial hemorrhage, midline shift or mass effect. Very minimal atrophy and small vessel ischemic disease. No prior infarct. Ventricles: Normal size with no hydrocephalus. No inferior displacement of cerebellar tonsils. Atherosclerotic calcified plaque in the distal verteb ral arteries and in the intracranial carotid arteries. More than expected for a patient of this age. Paranasal sinuses: As visualized are clear. Mastoid air cells: No effusions and mastoid air cells. There is a very small amount of increased soft tissue in the LEFT Prussak space. May be developing cholesteatoma. Calvarium and scalp: Skull is intact with no soft tissue edema or swelling. CT/CT head wo con* [id number] IMPRESSION: 1. No acute intracranial hemorrhage or edema. 2. Very minimal atrophy and small vessel ischemic disease. 3. Atherosclerotic calcifications in the distal vertebral arteries and distal carotid arteries. Atherosclerotic changes are more than expected for this age norman whitaker.
[2022-04-08 10:58] LABS: Basophils # 0.1 10^3/uL (0.0-0.1); Basophils % 1.1 %; Eosinophils # 0.2 10^3/uL (0.0-0.8); Eosinophils % 3.6 %; Hemoglobin 15.8 g/dL (11.7-16.6); Lymphocytes # 1.7 10^3/uL (0.8-4.8); Lymphocytes % 29.7 %; Mean Corpuscular HGB Conc 34.3 g/dL (30.0-36.0); Mean Corpuscular Hemoglobin 28.9 pg (28.0-34.0); Mean Corpuscular Volume 84.2 fl (80-94); Mean Platelet Volume 9.6 fL (7.4-10.4); Monocytes # 0.5 10^3/uL (0.2-0.9); Monocytes % 8.9 %; Neutrophils # 3.16 10^3/uL (1.8-7.7); Neutrophils % 56.5 %; Nucleated Red Blood Cells % 0 %; Platelet Count 179 10^3/cmm (130-400); Red Blood Count 5.46 10^6/uL (4.1-5.3); Red Cell Distribution Width 12.7 % (12.1-15.1); White Blood Count 5.6 10^3/uL (4.0-10.0)
[2022-04-08 11:13] LABS: Alanine Aminotransferase 25 U/L (0-41); Albumin Level 4.4 g/dL (3.5-5.2); Alkaline Phosphatase 54 U/L (40-130); Anion Gap 15.3 (5-19); Aspartate Amino Transferase 18 U/L (0-40); Blood Urea Nitrogen 18 mg/dL (6-20); Calcium 9.9 mg/dL (8.5-10.5); Carbon Dioxide 31 mmol/L (22-29); Chloride 94 mmol/L (98-107); Globulin 3.1 g/dL (1.3-4.6); Glomerular Filtration Rate 86.7 mL/min (90-130); Glucose 140 mg/dL (65-115); Osmolality Calculated 288 mOsm/kg (285-295); Potassium 3.3 mmol/L (3.5-5.1); Sodium 137 mmol/L (136-145); Total Bilirubin 0.6 mg/dL (0.15-1.2); Total Protein 7.5 g/dL (6.6-8.7)
--- NOTE | 2022-04-08 11:57 | W.ED.DIZZY ---
HPI - Dizziness General: Chief Complaint: Dizziness Stated Complaint: Dizziness, Chest congestions Time Seen by Provider: 04/08/22 10:16 Source: patient Mode of arrival: ambulatory History of Present Illness: HPI Narrative: 56 yo male presents emergency room with complaint of dizziness. He has not noticed any particular triggering aspects. He has had 2 different episodes where he is nearly passed out. First episode was on April 03 he had an episode today with increased dizziness with change in position no headache no head trauma he is not on any anticoagulants. He is awake alert and oriented no focal neurologic deficits noted, bedside NIH is 0 MD elicited complaint: dizziness Severity: mild Associated symptoms: Denies chest pain, chills, malaise, nausea, nasal congestion or vomiting Review of Systems Const: Denies: fever(s), chills, body aches, change in appetite, fatigue or malaise ENMT: Denies: throat pain, ear or mastoid pain, nasal discharge or nasal congestion Card: Denies: chest pain, edema, dyspnea on exertion or orthopnea Resp: Denies: dyspnea, productive cough or non-productive cough GI: Denies: abdominal pain, nausea, vomiting, hematemesis, coffee ground emesis, diarrhea, constipation, bloating, hematochezia or melena : Denies: flank pain, dysuria, urinary frequency or urinary urgency Skin/Breast: Denies: rash or pruritus PFSH ED PFSH: Medical History Obesity Sleep apnea Type 2 diabetes mellitus, with long-term current use of insulin Surgical History H/O hernia repair History of tonsillectomy Family History Father Cancer Lung cancer Mother Lung disease COPD, both parents smokers Social History Smoking and tobacco status: current every day smoker smokeless tobacco Smokeless tobacco user: chewing tobacco Alcohol intake: never Lives independently: Yes Household members: spouse and children Marital status: Number of children: 5 service: Yes Current occupational status: retired Current gender identity: Male Physical Exam Const: GENERAL APPEARANCE: cooperative and comfortable ORIENTATION/CONSCIOUSNESS: Yes awake, Yes oriented to person, Yes oriented to place and Yes oriented to time HENMT: COMMON NORMALS: normocephalic, atraumatic and hearing grossly normal bilaterally HEAD & SCALP: normocephalic and atraumatic Resp: COMMON NORMALS: normal respiratory effort, No retractions, No use of accessory muscles and clear to auscultation bilaterally AUSCULTATION: clear to auscultation bilaterally Cardio: COMMON NORMALS: regular rate, regular rhythm and No murmurs present (Cardio) RATE: regular rate RHYTHM: regular rhythm GI: COMMON NORMALS: Soft to palpation and No hepatosplenomegaly present AUSCULTATION: Yes normoactive bowel sounds PALPATION: Yes Soft to palpation, No Tenderness to palpation present (GI), No Guarding due to palpation present (GI) and Yes No hepatosplenomegaly present Extremity: COMMON NORMALS: normal to inspection, capillary refill normal, no clubbing, cyanosis or edema, no calf tenderness and no pedal edema Neuro: SENSORIUM/ORIENTATION: Yes oriented to person, Yes oriented to place and Yes oriented to time OTHER: NIH 0 Skin: COMMON NORMALS: no rashes or lesions noted GENERAL SKIN EXAM: no rashes or lesions noted Course Vital Signs: Vital signs: Vital Signs Temperature 97.1 F L 04/08/22 10:05 Pulse Rate 66 04/08/22 14:13 Respiratory Rate 16 04/08/22 14:13 Blood Pressure 125/80 04/08/22 14:13 Pulse Oximetry 94 04/08/22 14:13 Oxygen Delivery Me thod 04/08/22 10:05 [facility] - Dizziness Medical Decision Making Patient is doing better. His dizziness seems to be very positional is already improved some. We will going to put him meclizine to use as needed if symptoms recur or worsen recheck with his primary care doctor. As we are discussing the diagnosis right before he left he made a comment that at 1 point when he had sneezed he got severe dizziness. It was a single episode and has not had recurrence since. Advised him that if he does noticed with sneezing cough or exertional effort to that he gets sudden onset of worsening dizziness he should follow-up with his primary care doctor and be evaluated for perilymph fistula as cause of dizziness. At this time it does not seem reproducible with Valsalva so I do not believe that is what he has. It is more producible with change in position and movement. Medical Records I reviewed the patient's medical records. Lab Data I reviewed the patient's lab results. 04/08/22 10:50 04/08/22 10:[address] 04/08/22 10:22 IMPRESSION: 1. No acute intracranial hemorrhage or edema. 2. Very minimal atrophy and small vessel ischemic disease. 3. Atherosclerotic calcifications in the distal vertebral arteries and distal carotid arteries. Atherosclerotic changes are more than expected for this age group. Laboratory Results WBC 5.6 10^3/uL (4.0-10.0) 04/08/22 10:50 RBC 5.46 10^6/uL (4.1-5.3) H 04/08/22 10:50 Hgb 15.8 g/dL (11.7-16.6) 04/08/22 10:50 Hct 46.0 % (42.0-52.0) 04/08/22 10:50 MCV 84.2 fl (80-94) 04/08/22 10:50 MCH 28.9 pg (28.0-34.0) 04/08/22 10:50 MCHC 34.3 g/dL (30.0-36.0) 04/08/22 10:50 RDW 12.7 % (12.1-15.1) 04/08/22 10:50 Plt Count 179 10^3/cmm (130-400) 04/08/22 10:50 MPV 9.6 fL (7.4-10.4) 04/08/22 10:50 Neut % (Auto) 56.5 % 04/08/22 10:50 Lymph % (Auto) 29.7 % 04/08/22 10:50 [place] % (Auto) 8.9 % 04/08/22 10:50 Eos % (Auto) 3.6 % 04/08/22 10:50 Baso % (Auto) 1.1 % 04/08/22 10:50 Neut # (Auto) 3.16 10^3/uL (1.8-7.7) 04/08/22 10:50 Lymph # (Auto) 1.7 10^3/uL (0.8-4.8) 04/08/22 10:50 [place] # (Auto) 0.5 10^3/uL (0.2-0.9) 04/08/22 10:50 Eos # (Auto) 0.2 10^3/uL (0.0-0.8) 04/08/22 10:50 Baso # (Auto) 0.1 10^3/uL (0.0-0.1) 04/08/22 10:50 Nucleated RBC % (auto) 0 % 04/08/22 10:50 Nucleated RBCs # 0.0 /100WBC 04/08/22 10:50 Sodium 137 mmol/L (136-145) 04/08/22 10:50 Potassium 3.3 mmol/L (3.5-5.1) L 04/08/22 10:50 Chloride 94 mmol/L (98-107) L 04/08/22 10:50 Carbon Dioxide 31 mmol/L (22-29) H 04/08/22 10:50 Anion Gap 15.3 (5-19) 04/08/22 10:50 BUN 18 mg/dL (6-20) 04/08/22 10:50 Creatinine 0.9 mg/dL (0.7-1.2) 04/08/22 10:50 GFR Calculation 86.7 mL/min (90-130) L 04/08/22 10:50 Glucose 140 mg/dL (65-115) H 04/08/22 10:50 Calculated Osmolality 288 mOsm/kg (285-295) 04/08/22 10:50 Calcium 9.9 mg/dL (8.5-10.5) 04/08/22 10:50 Total Bilirubin 0.6 mg/dL (0.15-1.2) 04/08/22 10:50 AST 18 U/L (0-40) 04/08/22 10:50 ALT 25 U/L (0-41) 04/08/22 10:50 Alkaline Phosphatase 54 U/L (40-130) 04/08/22 10:50 Total Protein 7.5 g/dL (6.6-8.7) 04/08/22 10:50 Albumin 4.4 g/dL (3.5-5.2) 04/08/22 10:50 Globulin 3.1 g/dL (1.3-4.6) 04/08/22 10:50 Discharge Plan Discharge Patient Disposition: Home Clinical Impression: Benign paroxysmal positional vertigo Condition: Stable Prescriptions: New meclizine 25 mg tablet 25 mg PO QID PRN (Reason: dizziness) Qty: 20 0RF No Action cetirizine [Zyrtec] 10 mg tablet 10 mg PO DAILY mecobalamin (vitamin B12) 5,000 mcg tablet,disintegrating 5,000 mcg PO DAILY (DME) blood-glucose meter [Accu-Chek Caron Plus Meter] [facility] See Rx Instructions .Route Qty: 1 0RF Rx Instructions: As directed, use to check blood sugar, 3 times, daily. (DME) Accu-Chek Caron Plus test strp Strip See Rx Instructions .Route Qty: 100 0RF Rx Instructions: As directed, test blood sugar, 3 times daily. (DME) lancets [OneTouch Delica Lancets] 33 gauge misc See Rx Instructions .Route Qty: 100 5RF Rx Instructions: As directed, test 3 times, daily. metolazone 2.5 mg tablet 2.5 mg PO DAILY 90 Days Qty: 90 3RF (DME) lancets [OneTouch Delica Plus Lancet] 33 gauge misc See Rx Instructions .Route Qty: 300 3RF Rx Instructions: use to check blood sugar tid 90 day supply (DME) OneTouch Ultra Test Strip See Rx Instructions .Route Qty: 100 5RF Rx Instructions: As directed bumetanide 1 mg tablet 1 mg PO DAILY 90 Days Qty: 90 2RF metformin 1,000 mg tablet extended release 24 hr 1,000 mg PO DAILY 90 Days Qty: 90 1RF zinc acetate 50 mg (zinc) Capsule 50 mg PO DAILY (DME) Bipap atorvastatin 20 mg tablet 20 mg PO DAILY Urocit-K 15 15 mEq tablet extended release 22.5 meq PO BID Jardiance 25 mg tablet 25 mg PO DAILY PreserVision AREDS [id number],320-226-200 [id number] Capsule 1 cap PO DAILY Phyllis-Boaz Plus C/C(PE,DM) 2-7.8-10-325 mg Tablet, Effervescent 2 ea PO Q6H PRN (Reason: Cough) Discharge Orders: Discharge ED (Routine); Ordered 04/08/22 Ordered By: Jona Quintanilla Referrals: Nelly Garzon DO [Primary Care Provider] - Discharge Diet: Usual diet Discharge Activity: Increase activity as tolerated Patient Instructions: Opioid Safety, Pain Management Activity Restrictions/Additional Instructions: You were seen today for vertigo. Your head CT and exam were unremarkable. We will start on meclizine to use as needed for relief of symptoms if persists worsens or changes follow-up with your primary care doctor Coding Level of Care Code ED Gasoline Tester for Jacques Alicia
--- NOTE | 2022-04-08 12:19 | ECG_ITS ---
[facility] Test Date: 2022-04-08 Pat Name: Harsha Christensen Department: Room: Gender: Male Site Administrator: : 1965 Requested By: Jona Chang Order Number: [id number] Diaz MD: Alejo Welsh M.D. Measurements Intervals [place] Rate: 62 P: 31 WV: 189 QRS: 45 QRSD: 117 T: 51 QT: 418 QTc: 425 Interpretive Statements SINUS RHYTHM MODERATE INTRAVENTRICULAR CONDUCTION DELAY [105+ ms QRS DURATION, 80+ ms Q/S IN V1/V2, NO Q AND 60+ ms R IN I/aVL/V5/V6] Compared to ECG 05/23/2019 15:10:07 Sinus tachycardia no longer present ST (T wave) deviation no longer present Early repolarization no longer present T-wave abnormality no longer present Electronically Signed On 04-08-2022 17:29:51 CHAIRMAN & CHIEF EXECUTIVE OFFICER by Alejo Welsh M.D. [id number]
[2022-04-08 12:20] VITALS: BP 115/67; PULSE 65; RESP 16; O2SAT 96
[2022-04-08 13:28] VITALS: BP 108/65; PULSE 59; RESP 16; O2SAT 95
[2022-04-08 14:13] VITALS: BP 125/80; PULSE 66; RESP 16; O2SAT 94
== END 2022-04-08 14:14 | disposition home or self-care (01) ==
PROVIDERS: Emergency Provider Family Medicine; PCP Family Medicine
DX: H81.10 Benign paroxysmal vertigo, unspecified ear (principal); Z79.84 Long term (current) use of oral hypoglycemic drugs; E11.9 Type 2 diabetes mellitus without complications; F17.220 Nicotine dependence, chewing tobacco, uncomplicated
CPT/HCPCS: 36415; 70450; 80053; 85025; 93005; 99285

== ENCOUNTER → 2022-04-15 11:03 | Outpatient (BNVA) | payer OTHER, SELFPAY | PROVIDERS: PCP Family Medicine; Visit Provider Family Medicine | DX: R35.1 Nocturia (principal); E11.9 Type 2 diabetes mellitus without complications; Z79.4 Long term (current) use of insulin | CPT/HCPCS: 83036; 84153 ==

== ENCOUNTER → 2022-10-21 10:56 | Outpatient (BNVA) | payer OTHER, SELFPAY | PROVIDERS: PCP Family Medicine; Visit Provider Family Medicine | DX: E11.9 Type 2 diabetes mellitus without complications (principal); Z79.4 Long term (current) use of insulin; R68.82 Decreased libido | CPT/HCPCS: 80053; 80061; 83036; 84403 ==

== ENCOUNTER → 2023-04-22 08:34 | Outpatient (BNVA) | payer OTHER, SELFPAY | PROVIDERS: PCP Family Medicine; Visit Provider Family Medicine | DX: E11.9 Type 2 diabetes mellitus without complications (principal); Z79.4 Long term (current) use of insulin; R35.1 Nocturia | CPT/HCPCS: 80053; 80061; 82043; 83036; 85025; G0103 ==

== ENCOUNTER → 2023-07-31 09:26 | Outpatient (BNVA) | payer OTHER, SELFPAY | PROVIDERS: PCP Family Medicine; Visit Provider Family Medicine | DX: E11.9 Type 2 diabetes mellitus without complications (principal); Z79.4 Long term (current) use of insulin; Z13.6 Encounter for screening for cardiovascular disorders; F17.229 Nicotine dependence, chewing tobacco, with unspecified nicotine-induced disorders | CPT/HCPCS: 80053; 83036 ==

== ENCOUNTER 2023-12-12 12:14 | Emergency (ER) | payer OTHER, SELFPAY ==
[2023-12-12 12:55] VITALS: BP 126/63; PULSE 70; RESP 18; TEMP 36.6; O2SAT 95
[2023-12-12 13:16] LABS: Basophils # 0.1 10^3/uL (0.0-0.1); Eosinophils # 0.1 10^3/uL (0.0-0.8); Eosinophils % 1.4 %; Hematocrit 45.1 % (37-53); Lymphocytes # 1.6 10^3/uL (0.8-4.8); Lymphocytes % 22.6 %; Mean Corpuscular HGB Conc 35.5 g/dL (30-55); Mean Corpuscular Hemoglobin 29.8 pg (27-33); Mean Platelet Volume 9.7 fL (7.4-10.4); Monocytes # 0.6 10^3/uL (0.2-0.9); Monocytes % 8.5 %; Neutrophils # 4.59 10^3/uL (1.8-7.7); Neutrophils % 66.2 %; Nucleated Red Blood Cells % 0 %; Platelet Count 192 10^3/cmm (157-399); Red Blood Count 5.37 10^6/uL (3.85-5.65); Red Cell Distribution Width 12.6 % (12.1-15.1); White Blood Count 6.94 10^3/uL (3.29-11.43)
--- NOTE | 2023-12-12 13:16 | CT_ITS ---
WS: [id number] CT ABDOMEN AND PELVIS NONCONTRAST HISTORY: R back pain/hx of stones TECHNIQUE: Imaging performed through the abdomen and pelvis. Coronal and sagittal reformats are submi tted. All CT scans at [facility] use at least one of these dose optimization techniques: auto mated exposure control; mA and/or kV adjustment per patient size (includes targeted exams where dose is matched to clinical indication); or iterative reconstruction. DLP: 1017.48 mGy.cm COMPARISON: None available. Lower thorax: Lung bases are clear. Visualized heart is normal. No hiatal hernia. Liver: Normal size liver. No mass or bile duct dilatation. Gallbladder: Normal gallbladder. No pericholecystic fluid or cholelithiasis. No gallbladder wall thic kening. Pancreas: Normal size and attenuation. Normal pancreatic duct. No pancreatitis or mass. Spleen: Granulomata. Normal size. Adrenal glands: Normal. No mass. Right kidney: Normal size kidney with no mass or hydronephrosis. Left kidney: Normal size kidney with no mass or hydronephrosis. Aorta: Mild atherosclerosis abdominal aorta with no aneurysm. No free fluid, intraperitoneal air or significant lymphadenopathy. GI tract: Normally distended stomach. No small bowel obstruction. Normal appendix. Numerous diverticu la in the sigmoid colon without acute diverticulitis. Abdominal wall: Negative. No hernia. Pelvis: No free fluid or adenopathy. Normal urinary bladder. Patent RIGHT inguinal canal. Inguinal ca nal contains fat only. Osseous structures: No destructive bone lesions. There are few tiny sclerotic lesions which are proba ranjana bone islands. No cortical destruction. Moderate RIGHT foraminal L4-5 stenosis due to disc and ost eophyte disease. CT/CT kidney stone [id number] IMPRESSION: 1. Normal appendix. 2. No renal obstruction. No ureteral calcification. 3. No ascites. 4. Mild sigmoid diverticulosis without acute diverticulitis.
--- NOTE | 2023-12-12 13:17 | ED_ITS ---
HPI - Back Pain/Injury 2 General: Chief Complaint: Abdominal Pain Stated Complaint: right kidney pain, sent from urgent care Time Seen by Provider: 12/12/23 12:52 Source: patient Mode of arrival: ambulatory Limitations: no limitations History of Present Illness: Patient is a nice 58-year-old male who presents to ED today along with his for evaluation of right-sided back pain. He states pain began on Friday and has persisted since onset. He states it feels like a baseball sized zurita with cactus thorns. Patient states he has a longstanding history of kidney and ureter stones. He feels like his pain today is similar to previous stones. He has been drinking cranberry juice and taking Azo. He does not complain of hematuria (although states the Azo has interfered with color), urgency/frequency, or dysuria. He has not had any vomiting. He does have a history of lower back pain. He states his pain does not radiate down into his buttocks or legs. Pain is worse with movement, palpation, coughin, hiccups, etc. Vital signs are stable upon arrival. He was reportedly seen at the [facility] walk-in clinic and referred to the emergency department. Previous interventions regarding his kidney and ureter lithiasis includes one lithotripsy. States he normally has been able to pass the rest. MD elicited complaint: back pain Pertinent past history: prior back pain and kidney stones Onset (ago): day(s) Timing: constant Severity: severe Similar Symptoms Previously: Yes Quality: sharp and stabbing Location: right lower back Radiation: none Exacerbating factors: movement Relieving factors: none Context: history of kidney stones Associated symptoms: Deny abdominal pain, chills, dysuria, fatigue, fever(s), nausea, urinary urgency or vomiting Work related injury: No Related Data Home Medications Medication Instructions Recorded Confirmed cetirizine 10 mg tablet (Zyrtec) 10 mg PO DAILY 07/15/19 12/12/23 mecobalamin (vitamin B12) 5,000 5,000 mcg PO DAILY 11/23/20 12/12/23 mcg disintegrating tablet Bipap 04/08/22 12/12/23 zinc acetate 50 mg (zinc) capsule 50 mg PO DAILY 04/08/22 12/12/23 multivitamin with minerals-folic 1 tab PO DAILY 03/12/24 11/01/24 acid 80 mcg chewable tablet (Centrum Adult 50 Plus) atorvastatin 20 mg tablet 20 mg PO DAILY 12/12/23 12/12/23 bumetanide 1 mg tablet 1 mg PO DAILY 12/12/23 12/12/23 empagliflozin 25 mg tablet 25 mg PO DAILY 12/12/23 12/12/23 (Jardiance) metolazone 2.5 mg tablet 2.5 mg PO DAILY 12/12/23 12/12/23 potassium citrate 15 mEq (1,620 15 meq PO BID 12/12/23 12/12/23 mg) tablet,extended release Previous Rx's Medication Instructions Recorded blood-glucose meter (Accu-Chek #1 ea 10/27/20 Caron Plus Meter) blood sugar diagnostic (Accu-Chek #100 ea 01/22/21 Caron Plus test strips) lancets 33 gauge (OneTouch Delica #100 ea 01/22/21 Lancets) lancets 33 gauge (OneTouch Delica #300 ea 02/12/22 Plus Lancet) blood sugar diagnostic (OneTouch #100 ea 01/13/23 Ultra Test strips) semaglutide 2 mg/dose (8 mg/3 mL) 2 mg (0.75 mL) SUBCUT .weekly #3 mL 11/25/23 subcutaneous pen injector hydrocodone 5 mg-acetaminophen 325 1 tab PO Q6H PRN pain #14 tabs 12/12/23 mg tablet ibuprofen 800 mg tablet 800 mg PO Q8H PRN pain #20 tabs 12/12/23 methocarbamol 500 mg tablet 1,000 mg (2 x 500 mg) PO Q8H #30 12/12/23 tabs methylprednisolone 4 mg tablets in See Rx Instructions PO .COMPLEX 12/12/23 a dose pack (Medrol (Woodrow)) #21 ea Allergies Allergy/AdvReac Type Severity Reaction Status Date / Time No Known Allergies Allergy Verified 12/12/23 11:40 Review of Systems 2 Const: Denies: fever(s), chills, body aches, fatigue or malaise Card: Denies: chest pain Resp: Denies: dyspnea GI: Denies: abdominal pain, nausea, vomiting or diarrhea : Denies: flank pain, difficulty urinating, dysuria, urinary frequency, urinary urgency or urinary hesitancy Musc: Reports: back pain; Denies: neck pain, extremity pain, extremity swelling, joint pain or joint swelling Skin/Breast: Denies: rash Neuro: Denies: headache(s), numbness in extremities, weakness in extremities, sensory changes or dizziness PFSH ED 2 PFSH: Medical History Hyperlipidemia BMI 35.0-35.9,adult (HFpEF) heart failure with preserved eje ction fraction Hypertension Type 2 diabetes mellitus, with long-term current use of insulin Sleep apnea Obesity Surgical History History of tonsillectomy H/O hernia repair Family History Father Cancer Lung cancer Mother Lung disease COPD, both parents smokers Social History Smoking and tobacco/nicotine status: unknown if used tobacco/nicotine Alcohol intake: never Substance/Drug Use: never Lives independently: Yes Household members: spouse and children Marital status: Number of children: 5 service: Yes Current occupational status: retired Do you think of yourself as: Straight/Heterosexual Current gender identity: Male Physical Exam 2 Const: COMMON NORMALS: no acute distress, patient oriented x3, no limitations, alert and well nourished GENERAL APPEARANCE: cooperative O RIENTATION/CONSCIOUSNESS: Yes awake, Yes oriented to person, Yes oriented to place and Yes oriented to time Eye: COMMON NORMALS: no scleral icterus Resp: COMMON NORMALS: normal respiratory effort and clear to auscultation bilaterally AUSCULTATION: clear to auscultation bilaterally Cardio: COMMON NORMALS: regular rate and regular rhythm RATE: regular rate RHYTHM: regular rhythm GI: COMMON NORMALS: Normal to inspection, nondistended, normoactive bowel sounds present, Soft to palpation, non-tender, No hepatosplenomegaly present and no masses PALPATION: Yes Soft to palpation and Yes No hepatosplenomegaly present : COMMON NORMALS: Yes no CVA tenderness BLADDER/KIDNEY EXAM: Yes no CVA tenderness Back/Pelvis: COMMON NORMALS: no CVA tenderness and thoracic and lumbar spine normal to inspection LUMBAR SPINE/LOWER BACK: No lumbar spinal tenderness and No paraspinal muscle tenderness PELVIS: Yes buttocks normal SACROILIAC JOINTS: Yes SI joint(s) abnormal SI joint details: tender to palpation (R) S ACRUM: no tenderness COCCYX: no tenderness BACK IMAGE (MALE): 1. directly tender to R SI joint; palpation reproduces patient's pain; no radicular symptoms Extremity: GENERAL: Yes normal exam except as noted Neuro: COMMON NORMALS: patient oriented x3, moves all extremities, no focal motor deficits and no sensory deficits noted SENSORIUM/ORIENTATION: Yes alert, Yes oriented to person, Yes oriented to place and Yes oriented to time Skin: COMMON NORMALS: no rashes or lesions noted GENERAL SKIN EXAM: no rashes or lesions noted Course 2 Vital Signs: Vital signs: Vital Signs Temperature 97.9 F 12/12/23 12:55 Pulse Rate 65 12/12/23 14:23 Respiratory Rate 16 12/12/23 14:23 Blood Pressure 114/68 12/12/23 14:23 Pulse Oximetry 95 12/12/23 14:23 Oxygen Delivery Me thod Room Air 12/12/23 14:23 MDM - Back Pain/Injury Medical Decision Making Patient here for right sided back pain x 5 days or so. Pain is reproducible by palpation of his right SI joint. Given his history of ureterolithiasis and patient feeling like this was a calculi, blood work/UA/CT renal stone protocol initiated. Blood work is unremarkable-mild hypokalemia. He states he has a longstanding history of this. Was given oral supplementation here. CT imaging showing no renal obstruction or ureteral calcification. Otherwise unremarkable. UA most likely with some color interference from his Azo. He was nitrate positive however did not have any leukocyte esterase/WBCs/bacteria. He is not having any urinary symptoms. He feels better after IV medications here. Will treat him with NSAIDs, pain medications, muscle relaxers, steroids. Recommend follow-up with primary care in 1 to 2 weeks if symptoms do not seem to be improving. Return to ED precautions given. Medical Records I reviewed the patient's medical records. Labs I reviewed the patient's lab results. 12/12/23 13:11 12/12/23 13:11 Radiology Impressions Abdomen/Pelvis CT 12/12/23 13:16 IMPRESSION: 1. Normal appendix. 2. No renal obstruction. No ureteral calcification. 3. No ascites. 4. Mild sigmoid diverticulosis without acute diverticulitis. Laboratory Results WBC 6.94 10^3/uL (3.29-11.43) 12/12/23 13:11 RBC 5.37 10^6/uL (3.85-5.65) 12/12/23 13:11 Hgb 16.00 g/dL (11.27-16.99) 12/12/23 13:11 Hct 45.1 % (37-53) 12/12/23 13:11 MCV 84.0 fl (82-101) 12/12/23 13:11 MCH 29.8 pg (27-33) 12/12/23 13:11 MCHC 35.5 g/dL (30-55) 12/12/23 13:11 RDW 12.6 % (12.1-15.1) 12/12/23 13:11 Plt Count 192 10^3/cmm (157-399) 12/12/23 13:11 MPV 9.7 fL (7.4-10.4) 12/12/23 13:11 Neut % (Auto) 66.2 % 12/12/23 13:11 Lymph % (Auto) 22.6 % 12/12/23 13:11 [place] % (Auto) 8.5 % 12/12/23 13:11 Eos % (Auto) 1.4 % 12/12/23 13:11 Baso % (Auto) 1.0 % 12/12/23 13:11 Neut # (Auto) 4.59 10^3/uL (1.8-7.7) 12/12/23 13:11 Lymph # (Auto) 1.6 10^3/uL (0.8-4.8) 12/12/23 13:11 [place] # (Auto) 0.6 10^3/uL (0.2-0.9) 12/12/23 13:11 Eos # (Auto) 0.1 10^3/uL (0.0-0.8) 12/12/23 13:11 Baso # (Auto) 0.1 10^3/uL (0.0-0.1) 12/12/23 13:11 Nucleated RBC % (auto) 0 % 12/12/23 13:11 Nucleated RBCs # 0.0 /100WBC 12/12/23 13:11 Sodium 135 mmol/L (136-145) L 12/12/23 13:11 Potassium 2.9 mmol/L (3.5-5.1) L 12/12/23 13:11 Chloride 93 mmol/L (98-107) L 12/12/23 13:11 Carbon Dioxide 29 mmol/L (22-29) 12/12/23 13:11 Anion Gap 15.9 (5-19) 12/12/23 13:11 BUN 18 mg/dL (8-23) 12/12/23 13:11 Creatinine 0.7 mg/dL (0.7-1.2) 12/12/23 13:11 GFR Calculation 115.0 mL/min (90-130) 12/12/23 13:11 Glucose 113 mg/dL (65-115) 12/12/23 13:11 Calculated Osmolality 283 mOsm/kg (285-295) L 12/12/23 13:11 Calcium 9.6 mg/dL (8.5-10.5) 12/12/23 13:11 Total Bilirubin 1.1 mg/dL (0.15-1.2) 12/12/23 13:11 AST 22 U/L (0-40) 12/12/23 13:11 ALT 29 U/L (0-41) 12/12/23 13:11 Alkaline Phosphatase 57 U/L (40-130) 12/12/23 13:11 Total Protein 7.5 g/dL (6.6-8.7) 12/12/23 13:11 Albumin 4.6 g/dL (3.5-5.2) 12/12/23 13:11 Globulin 2.9 g/dL (1.3-4.6) 12/12/23 13:11 Urine Color Dark yellow (Yellow) A 12/12/23 13:50 Urine Appearance Clear (CLEAR) 12/12/23 13:50 Urine pH 8.0 (5-7) A 12/12/23 13:50 Ur Specific [place] 1.029 (1.005-1.030) 12/12/23 13:50 Urine Protein Trace (Negative) A 12/12/23 13:50 Urine Glucose (UA) 1+ (Normal) H 12/12/23 13:50 Urine Ketones Negative (Negative) 12/12/23 13:50 Urine Blood Negative (Negative) 12/12/23 13:50 Urine Nitrate Positive (Negative) A 12/12/23 13:50 Urine Bilirubin Negative (Negative) 12/12/23 13:50 Urine Urobilinogen 1.0 mg/dL (Negative) 12/12/23 13:50 Ur Leukocyte Esterase Negative (Negative) 12/12/23 13:50 Urine RBC 0-2 /hpf (0-2) 12/12/23 13:50 Urine WBC 0-5 /hpf (0-5) 12/12/23 13:50 Ur Squamous Epith Cells 0-5 /hpf (0-5) 12/12/23 13:50 Amorphous Sediment Not Reportable 12/12/23 13:50 Urine Bacteria None seen /hpf (NONE) 12/12/23 13:50 Hyaline Casts 0-4 /lpf H 12/12/23 13:50 All radiology interpretation(s) finalized by discharge Discharge Plan Discharge Patient Disposition: Home Clinical Impression: Lower back pain Qualifiers: Chronicity: acute Back pain laterality: right Sciatica presence: without sciatica Qualified Code(s): M54.50 - Low back pain, unspecified Condition: Stable Prescriptions: New methocarbamol 500 mg tablet 1,000 mg PO Q8H Qty: 30 0RF ibuprofen 800 mg tablet 800 mg PO Q8H PRN (Reason: pain) Qty: 20 0RF hydrocodone-acetaminophen 5-325 mg tablet 1 tab PO Q6H PRN (Reason: pain) Qty: 14 0RF methylprednisolone [Medrol (Woodrow)] 4 mg tablets,dose pack See Rx Instructions .ROUTE .COMPLEX Qty: 21 0RF Rx Instructions: orally per package directions No Action cetirizine [Zyrtec] 10 mg tablet 10 mg PO DAILY mecobalamin (vitamin B12) 5,000 mcg tablet,disintegrating 5,000 mcg PO DAILY (DME) blood-glucose meter [Accu-Chek Caron Plus Meter] Misc See Rx Instructions .Route Qty: 1 0RF Rx Instructions: As directed, use to check blood sugar, 3 times, daily. Centrum Adult 50 Plus 80 mcg tablet,chewable 1 tab PO DAILY (DME) Accu-Chek Caron Plus test strp Strip See Rx Instructions .Route Qty: 100 0RF Rx Instructions: As directed, test blood sugar, 3 times daily. (DME) lancets [OneTouch Delica Lancets] 33 gauge misc See Rx Instructions .Route Qty: 100 5RF Rx Instructions: As directed, test 3 times, daily. (DME) lancets [OneTouch Delica Plus Lancet] 33 gauge misc See Rx Instructions .Route Qty: 300 3RF Rx Instructions: use to check blood sugar tid 90 day supply (DME) OneTouch Ultra Test Strip See Rx Instructions .Route Qty: 100 5RF Rx Instructions: As directed semaglutide 2 mg/dose (8 mg/3 mL) pen injector 2 mg SUBCUT .weekly Qty: 3 3RF zinc acetate 50 mg (zinc) Capsule 50 mg PO DAILY (DME) Bipap metolazone 2.5 mg tablet 2.5 mg PO DAILY atorvastatin 20 mg tablet 20 mg PO DAILY bumetanide 1 mg tablet 1 mg PO DAILY potassium citrate 15 mEq tablet extended release 15 meq PO BID Jardiance 25 mg tablet 25 mg PO DAILY Discharge Orders: Discharge ED (Routine); Ordered 12/12/23 Ordered By: Ilda Aguilar Referrals: Everardo Narvaez MD [Primary Care Provider] - Patient Instructions: Acute Low Back Pain (ED), Sacroiliitis (ED), Back Pain (ED), Opioid Safety, Pain Management Activity Restrictions/Additional Instructions: As we discussed, your CT scan did not show any obstruction or stone in your ureter. Will place you on medications to help with your back pain. I would like you to follow-up with your primary care provider in 1 to 2 weeks if symptoms do not seem to be improving. You may return to the emergency department for worsening pain, inability to urinate, repetitive episodes of vomiting, fevers, inability to ambulate, leg weakness, or any other concerns you may have. It was pleasure to care for you today. I hope you begin to feel better soon. Coding Level of Care Code ED Machine [employer] for Jacques Alicia
[2023-12-12 13:37] LABS: Alanine Aminotransferase 29 U/L (0-41); Albumin Level 4.6 g/dL (3.5-5.2); Alkaline Phosphatase 57 U/L (40-130); Anion Gap 15.9 (5-19); Aspartate Amino Transferase 22 U/L (0-40); Blood Urea Nitrogen 18 mg/dL (8-23); Calcium 9.6 mg/dL (8.5-10.5); Carbon Dioxide 29 mmol/L (22-29); Creatinine Clr Calc Pharmacy 140.6584; Globulin 2.9 g/dL (1.3-4.6); Glucose 113 mg/dL (65-115); Total Bilirubin 1.1 mg/dL (0.15-1.2); Total Protein 7.5 g/dL (6.6-8.7)
[2023-12-12 13:54] LABS: Chloride 93 mmol/L (98-107); Osmolality Calculated 283 mOsm/kg (285-295); Sodium 135 mmol/L (136-145)
[2023-12-12 13:55] LABS: Potassium 2.9 mmol/L (3.5-5.1)
[2023-12-12] MEDS: ketorolac 30 mg/mL INJ IVP (13:59)
[2023-12-12 14:04] LABS: Bilirubin Urine Negative (Negative); Blood Urine Negative (Negative); Glucose Urine UA 1+ (Normal); Ketones Urine Negative (Negative); Leukocyte Esterase Urine Negative (Negative); Nitrate Urine Positive (Negative); Protein Urine Trace (Negative); Specific Gravity, Urine 1.029 (1.005-1.030); Urine Appearance Clear (CLEAR); Urine Color Dark Yellow (Yellow)
[2023-12-12 14:09] LABS: Add Urine Microscopic? YES; Bacteria Urine None Seen /hpf; Hyaline Casts Urine 0-4 /lpf; RBC Urine 0-2 /hpf (0-2); Squamous Epithelial Cell Urine 0-5 /hpf (0-5); WBC Urine 0-5 /hpf (0-5)
[2023-12-12] MEDS: potassium chloride ER 20 mEq Tablet 40 MEQ PO (14:14)
[2023-12-12] MEDS: orphenadrine 30 mg/mL Inj 2 mL 60 MG IVP (14:15)
[2023-12-12] MEDS: dexamethasone 10 mg/mL INJ IVP (14:15)
[2023-12-12 14:16] VITALS: RESP 18; O2SAT 95
[2023-12-12] MEDS: morphine 4 mg/mL SDV 1 mL IVP (14:16)
[2023-12-12 14:18] LABS: UA Slide Review UA Slide Review Perf
[2023-12-12 14:23] VITALS: BP 114/68; PULSE 65; RESP 16; O2SAT 95
[2023-12-12 15:20] VITALS: BP 111/59; PULSE 64; RESP 14; O2SAT 96
== END 2023-12-12 15:19 | disposition home or self-care (01) ==
PROVIDERS: Emergency Provider Physician Assistant; PCP Family Medicine
DX: M54.50 Low back pain, unspecified (principal); E11.9 Type 2 diabetes mellitus without complications; I10 Essential (primary) hypertension
CPT/HCPCS: 36415; 74176; 80053; 81001; 85025; 96374; 96375; 99285; J1100; J1885; J2270; J2360

== ENCOUNTER → 2024-04-15 15:52 | Outpatient (BNVA) | payer OTHER, SELFPAY | PROVIDERS: PCP Family Medicine; Visit Provider Family Medicine | DX: E11.9 Type 2 diabetes mellitus without complications (principal); Z79.4 Long term (current) use of insulin; R35.1 Nocturia; Z12.5 Encounter for screening for malignant neoplasm of prostate | CPT/HCPCS: 80053; 83036; 84153 ==

== ENCOUNTER 2024-05-17 08:32 | Outpatient (CLI) | payer OTHER, SELFPAY ==
--- NOTE | 2024-05-17 08:30 | USCV_ITS ---
Harsha Christensen Age: 58 Gender: M : 1965 Exam Date: 05/17/2024 08:43 Ordering Phys: Nelly Garzon DO Technologist: CHRIS Exam Location: [facility] [place] Indication: HF BP: 96 / 68 HR: 75 Rhythm: Sinus Technical Quality: Adequate MEASUREMENTS (Male / Female) Normal Values 2D ECHO LV Diastolic Diameter PLAX 6.1 cm 4.2 - 5.9 / 3.9 - 5.3 cm IVS Diastolic Thickness 1.2 cm 0.6 - 1.0 / 0.6 - 0.9 cm IVS Systolic Thickness 1.7 cm LVPW Diastolic Thickness 1.2 cm 0.6 - 1.0 / 0.6 - 0.9 cm LVPW Systolic Thickness 1.3 cm LVOT Diameter 2.6 cm LV Ejection Fraction 2D Teich 53.9 % LV Ejection Fraction MOD 4C 51.7 % LV Ejection Fraction MOD 2C 53.9 % LV Ejection Fraction 2C AL 54.4 % LA Diameter 4.9 cm RA Systolic Volume 4C AL 31.3 ml RA Systolic Volume 4C MOD 30.3 ml LA Sys Volume AL 63.4 cm cubed LA Sys Volume Index AL 26.8 cm cubed/m squared Aorta at Sinotubular Diameter 3.3 cm IVC Diameter 1.8 cm M-MODE LA Ao Ratio MM 1.5 AV Cusp Separation MM 1.3 cm DOPPLER AV Peak Velocity 116.0 cm/s LVOT Peak Velocity 80.0 cm/s AV Area Cont Eq vti 3.2 cm squared AV Area Cont Eq pk 3.5 cm squared MV Peak Velocity 161.0 cm/s MV Area PHT 3.7 cm squared Mitral E to A Ratio 1.4 TR Peak Velocity 101.0 cm/s TR Peak Gradient 4.1 mmHg TV Peak E Velocity 66.0 cm/s PV Peak Velocity 73.0 cm/s FINDINGS Left Ventricle Normal left ventricular size and systolic function, EF 55%.no regional wall motion abnormalities. Mild left ventricular hypertrophy. Right Ventricle Normal right ventricular size and systolic function. Right Atrium Normal right atrial size. Left Atrium Possibly of normal size Mitral Valve Moderate prolapse of the anterior mitral leaflet with .moderate mitral valve regurgitation. Aortic Valve No gross abnormalities noted Tricuspid Valve No gross abnormalities noted Pulmonic Valve Pulmonic valve not well visualized. Pericardium Normal pericardium without effusion. Aorta Normal ascending aorta dimension. IVC Normal IVC dimension with <50% respiratory change of the inferior vena cava. CONCLUSIONS Normal left ventricular size and systolic function, EF 55%.no regional wall motion abnormalities. Mild left ventricular hypertrophy. Moderate prolapse of the anterior mitral leaflet with .moderate mitral valve regurgitation. There is no pericardial effusion. There are no intracardiac masses. Estimated RA pressure around 10 mmHg Compared to the study from 05/11/2020, there may not be a significant change Dr Kristyn Joseph MD FAC (Electronically Signed) Final Date: 18 May 2024 20:07 S
== END 2024-05-17 08:33 | disposition home or self-care (01) ==
PROVIDERS: PCP Family Medicine; Visit Provider Family Medicine
DX: I50.32 Chronic diastolic (congestive) heart failure (principal); I51.7 Cardiomegaly; I34.0 Nonrheumatic mitral (valve) insufficiency; I34.1 Nonrheumatic mitral (valve) prolapse
CPT/HCPCS: 80048; 93306

== ENCOUNTER → 2024-07-08 08:41 | Outpatient (BNVA) | payer OTHER, SELFPAY | PROVIDERS: PCP Family Medicine; Visit Provider Family Medicine | DX: E11.9 Type 2 diabetes mellitus without complications (principal); Z79.4 Long term (current) use of insulin | CPT/HCPCS: 80048; 80061; 82043 ==

== ENCOUNTER → 2024-12-21 08:45 | Outpatient (BNVA) | payer OTHER, SELFPAY | PROVIDERS: PCP Family Medicine; Visit Provider Family Medicine | DX: E11.9 Type 2 diabetes mellitus without complications (principal); Z79.4 Long term (current) use of insulin; Z13.6 Encounter for screening for cardiovascular disorders | CPT/HCPCS: 80053; 83036; 85025 ==